=== PATIENT | male | born 1945 | race Caucasian/White ===

== ENCOUNTER 2016-07-08 11:08 | Day surgery (SDC) | payer MEDICARE ==
[~2016-07-08 11:08] MED LIST: Buffered Lidocaine 1% SYR 3ML* 3 ML/SYR SYRINGE INTRADERM ONE; Metoclopramide TAB* 10 MG PO ONE; Sodium Citrate/Citric Acid* 15 ML UDC PO ONE; celeCOXIB CAP* 100 MG ONE; celeCOXIB CAP* 200 MG PO ONE
[2016-07-08] MEDS ORDERED: ceFAZolin 2 GM PREMIX (*) 2 GM/50 ML BAG IVPB ONE (11:09)
[2016-07-08] MEDS ORDERED: Metoclopramide TAB* 10 MG ONE (11:09)
[2016-07-08] MEDS ORDERED: Sodium Citrate/Citric Acid* 15 ML UDC ONE (11:09)
[2016-07-08] MEDS ORDERED: Bupivacaine 0.25% EPI 200,000* 30 ML SDV ONE (14:47)
[2016-07-08] MEDS ORDERED: fentaNYL* 50 MCG/ML 2 ML VIAL (100 MCG VIAL) ONE (15:16)
[2016-07-08] MEDS ORDERED: Atracurium* 10 MG/ML 10 ML VIAL ONE (15:16)
[2016-07-08] MEDS ORDERED: fentaNYL* 50 MCG/ML 2 ML VIAL (100 MCG VIAL) IV PRN (15:54)
[2016-07-08] MEDS ORDERED: diPHENhydraMINE IV* 50 MG/ML 1 ml VIAL (BENADRYL) IV PRN (15:54)
[2016-07-08] MEDS ORDERED: Ketorolac INJ* 30 MG/ML 1 ML VIAL IV PRN (15:54)
[2016-07-08] MEDS ORDERED: Lidocaine 2% PF * 5 ML VIAL ONE (15:59)
[2016-07-08] MEDS ORDERED: Propofol* 10 MG/ML 20 ML BTL IV PUSH ONE ×2 (15:59→16:55)
[2016-07-08] MEDS ORDERED: Atropine 1MG/ML INJ* 1 ML VIAL ONE (16:36)
[2016-07-08] MEDS ORDERED: Edrophonium Chloride* 10 MG/ML 15 ML VIAL ONE (16:37)
[2016-07-08] MEDS ORDERED: HYDROcodone/ACETAMIN 5-325 MG* 1 TAB PO PRN (17:02)
--- NOTE | 2016-07-08 17:03 | SURGPN ---
Brief Operative Note - Surgery Procedures: Procedures OPERATIVE REPORT PRE-OP: Cholelithasis, abdominal pain POST-OP: Same PROCEDURE: Laparoscopic cholecystectomy SURGEON: MD León ANESTHESIA: General with Local ASST: DANIEL Buitrago IVF: 1 liter of crystalloid EBL: min SPECIMEN: gallbladder DRAIN: none WOUND CLASS: 2 COMPLICATIONS: none TO PACU
[2016-07-08] MEDS ORDERED: Ketorolac INJ* 30 MG/ML 1 ML VIAL ONE (18:10)
[2016-07-08 19:22] VITALS: BP 117/60
--- NOTE | 2016-07-09 09:37 | OP ---
DATE OF OPERATION: 07/08/16 [facility] DATE OF : 49 SURGEON: Gregg Traore MD. PRODUCTION CONTROL EXPEDITER: DANIEL Barker. ANESTHESIOLOGIST: Dr. Carlisle. ANESTHESIA: Local with general. PRE-OP DIAGNOSES: 1. Right-sided abdominal pain. 2. Cholelithiasis. POST-OP DIAGNOSIS: OPERATIVE PROCEDURE: Laparoscopic cholecystectomy. ESTIMATED BLOOD LOSS: Minimal. WOUND CLASSIFICATION: II. DRAINS: None. COMPLICATIONS: Gallbladder. SPECIMENS: Gallbladder. FINDINGS: The gallbladder was without acute or chronic inflammation, although did have quite a bit of fat surrounding the gallbladder. There was one gallstone measuring about 1 cm in the gallbladder itself. No other abnormality noted on brief laparoscopy of the right side of the abdomen. BRIEF HISTORY: Mr. Danie Huntley is a 71-year-old gentleman with a long history of abdominal discomfort mainly in the right side of his abdomen. He has undergone an appendectomy in the past. He has had gallstones for long that have been known for a prolonged period of time and now is having more intermittent, but severe right-sided abdominal pain, somewhat more in the right mid abdomen. He has undergone both upper and lower endoscopy and a HIDA scan in addition, it showed an ejection fraction of 33%. Due to severity and nature of his symptoms and the persistence, although there may be other etiology of his discomfort such as functional bowel syndrome, and after consultation with Gastroenterology and Dr. Goyal, decision is made to proceed with cholecystectomy with the hopes that his symptoms are secondary to the gallstones and he would benefit from a cholecystectomy. DESCRIPTION OF PROCEDURE: Written informed consent was obtained, the abdomen was marked with indelible ink and preoperative antibiotics were administered. The patient was taken to the operating room and placed in the supine position. Sequential compression devices and a warming blanket were applied. The abdomen was prepped and draped in the usual sterile fashion. Time-out verification was completed. Next, a small vertical incision was made several centimeters above the umbilicus at the midline. The peritoneal cavity was entered under direct vision. A 12-mm port was inserted and the abdomen was insufflated to 15 mmHg. Under direct vision, an 11-mm epigastric port was placed and two 5-mm ports were placed in the right side of the abdominal wall. Upon entering the abdomen, there was no obvious adhesive disease. No incisional or abdominal wall hernias were noted. The liver appeared to be normal. There was some fatty omental attachments to the gallbladder, which were taken down sharply to expose the gallbladder. This was without evidence of acute or chronic inflammation. He did have some fat that was adherent to the wall, which was taken down bluntly, but easily and we were able to grasp the gallbladder easily and elevate it up over the liver bed. The fat and peritoneum along the medial and lateral aspects of the gallbladder were then taken down using sharp and blunt dissection, and the cystic duct and artery were carefully identified and dissected as they entered the gallbladder. I took a considerable portion of the gallbladder off the liver bed space using the critical view technique to assure myself that all of these two structures entered the gallbladder. The cystic duct was of normal caliber and was triply clipped and divided. The cystic artery was also doubly clipped and divided. The gallbladder was then removed from the liver bed without difficulty and placed in an EndoCatch bag and brought out through the umbilical incision. The gallbladder bed was irrigated. Hemostasis was assured. Next, in light of the patient's mid abdominal discomfort using some bowel graspers, we were able to identify the right colon and cecum. There were some very superficial adhesions from the cecum to the right lateral abdominal wall from the previous surgery, and I was able to identify the staple line on the cecum which was all intact. The terminal ileum was of normal caliber and was free, and I followed this back using some bowel graspers several feet, and there was no change in caliber of the small bowel. No adhesive disease or abnormality noted. It was also noted that all the entire bowel that I could see with somewhat limited laparoscopy, was normal caliber without evidence of distention or obvious abnormality. With this in mind, all ports were removed under direct vision of the camera. The umbilical fascia was closed with interrupted 0 Polysorb suture. The skin at all 4 incisions was approximated with subcuticular 4-0 Polysorb suture. Steri-Strips and sterile dressings were applied. The patient tolerated the procedure well, was taken to the recovery room in stable condition. CC: Dr. Marc Patel; Dr. Jonel Goyal* [id number]/[facility] #: [id number] [facility]
== END 2016-07-08 19:23 | disposition home or self-care (01) ==
LOC: OR 11:08
PROVIDERS: ATTEND Surgery
DX: K80.10 Calculus of gallbladder with chronic cholecystitis without obstruction (principal); I48.91 Unspecified atrial fibrillation; Z79.01 Long term (current) use of anticoagulants; E66.9 Obesity, unspecified; E11.8 Type 2 diabetes mellitus with unspecified complications; Z79.84 Long term (current) use of oral hypoglycemic drugs
CPT/HCPCS: 36415; 85610; 88304; A9270-GY; J0461; J0690; J1885; J2704; J3010

== ENCOUNTER 2016-12-15 21:41 | Observation (INO) | payer MEDICARE ==
[2016-12-15] MEDS ORDERED: Aspirin Low Dose CHEW TAB* 81 MG PO ONE (22:32)
[2016-12-15 23:23] LABS: Hematocrit 38 % (42-52); Hemoglobin 12.7 g/dl (14.0-18.0); Mean Corpuscular HGB Conc 33 g/dl (31-36); Mean Corpuscular Hemoglobin 26 pg (27-31); Mean Corpuscular Volume 79 fL (80-94); Mean Platelet Volume 9 um3 (7.4-10.4); Red Blood Count 4.84 10^6/ul (4.0-5.4); Red Cell Distribution Width 16 % (10.5-15); White Blood Count 7.3 10^3/ul (3.5-10.8)
[2016-12-15 23:41] LABS: BUN/Creatinine Ratio 16.3 (8-20); Calcium 9.3 mg/dL (8.6-10.3); EGFR African American 123.3 (>60); EGFR Non-African American 95.8 (>60); Globulin 3.2 g/dL (2-4); Potassium 3.8 mmol/L (3.5-5.0); Total Bilirubin 0.5 mg/dL (0.2-1.0); Total Protein 7.2 g/dL (6.4-8.9)
[2016-12-16 01:38] LABS: C Reactive Protein 4.27 mg/L (< 5.00)
[2016-12-16] MEDS ORDERED: HYDROcodone/ACETAMIN 5-325 MG* 1 TAB PO PRN (01:38)
[2016-12-16] MEDS ORDERED: Acetaminophen TAB* 325 MG PO PRN (01:38)
[2016-12-16] MEDS ORDERED: diPHENhydraMINE PO* 25 MG PO PRN (01:40)
[2016-12-16] MEDS ORDERED: Dextrose 50% Syringe 50 ML* 25 GM/50 ML SYRINGE IV PUSH PRN (01:50)
[2016-12-16] MEDS ORDERED: Warfarin TAB(*) 5 MG PO SCH (02:00)
[2016-12-16 02:09] LABS: Erythrocyte Sed Rate 22 mm/Hr (0-40)
--- NOTE | 2016-12-16 03:27 | HP ---
CC: Dr. Ahmadi; Dr. Patel * HISTORY AND PHYSICAL: DATE OF ADMISSION: 12/16/16 PRIMARY CARE PROVIDER: Dr. Patel. FORTUNE COOKIE MAKER: Dr. Ahmadi. CHIEF COMPLAINT: Chest pain. HISTORY OF PRESENT ILLNESS: The patient states that beginning on the afternoon of 12/14/16, he began to have pain that would come and go. He describes the pain as a dull ache in the left lower chest. He states that beginning in the afternoon of 12/15/16, the pain became persistent. He still describes this as a dull ache. He rates it as 4-5/10. He has no associated shortness of breath or diaphoresis. He does state that he feels mildly nauseous. He notes that his pain worsens when he takes a deep breath. He denies any recent travel. Patient also notes that the pain is much worse upon sitting up or any movement. The patient denies any recent strenuous activity. His does add that this past he was very tired on the way home from shopping. He was reportedly falling asleep at the wheel. When he got home, he took a long nap, which is very out of character for him. PAST MEDICAL HISTORY: 1. A-fib, status post ablation. 2. Cervical spinal stenosis. 3. Ankylosing spondylitis. 4. CITLALY, on CPAP. 5. Type 2 diabetes. 6. GERD. 7. BPH. PAST SURGICAL HISTORY: 1. Cholecystectomy. 2. TURP. 3. Right rotator cuff repair. 4. Appendectomy. 5. Left total knee replacement. 6. Right knee arthroscopy. MEDICATIONS: 1. Metformin 500 mg p.o. b.i.d. 2. Benadryl 25 mg p.o. q.h.s. p.r.n. insomnia. 3. Coumadin 5 mg p.o. each Friday and 7.5 mg p.o. Friday, Friday, Friday, , Friday, and Friday. 4. Requip 0.5 mg p.o. q.h.s. 5. Potassium chloride 20 mEq p.o. daily. 6. Protonix 40 mg p.o. b.i.d. 7. Lunesta 3 mg p.o. q.h.s. 8. Dofetilide 500 mcg p.o. b.i.d. 9. Diltiazem ER 120 mg p.o. daily. ALLERGIES: MORPHINE. FAMILY HISTORY: Mother at age of 68. She had a CVA. She also had small bowel obstruction. Dad at age of 72. He had COPD. SOCIAL HISTORY: The patient is currently a nonsmoker, though he did smoke a pipe several years ago. He does not drink alcohol. 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 He is . He has 4 children. His is his healthcare proxy. REVIEW OF SYSTEMS: The patient denies any fevers or chills. He states his appetite has been poor over the last several days. He admits to the chest pain as noted above. He also admits to chronic left lower extremity swelling. He noted slight cough on the day prior to admission. No significant shortness of breath. Mild nausea. The patient states he had diarrhea earlier this past week. No dysuria. No focal weakness or sensory loss. No sudden change in the vision. No dysphagia. No joint pains or muscles pain out of the ordinary. No rashes. No anxiety or depression. PHYSICAL EXAMINATION GENERAL: The patient is a well-developed middle-aged male, lying in the stretcher, in no acute distress. VITAL SIGNS: Blood pressure 132/73, pulse 58, respirations 16, temp 98.1, O2 sat 98% on room air. HEENT: Pupils are equal, they are round, they react to light. Extraocular muscles are intact. Oropharynx is clear. Oral mucosa is moist. NECK: There is no submandibular, cervical or supraclavicular adenopathy. Thyroid is not enlarged. No thyroid nodules are noted. PULMONARY: Lungs are clear to auscultation bilaterally. CARDIAC: Normal S1 and S2. Regular rate and rhythm. I do not appreciate any murmurs. There is non-pitting edema of the left lower extremity. The patient does have point tenderness to palpation at the lower left sternum. ABDOMEN: Bowel sounds present. Abdomen is soft, nontender, nondistended. MUSCULOSKELETAL: There is no cyanosis or clubbing of the digits. There is full active range of motion of all 4 extremities. NEURO: Cranial nerves II through XII are grossly intact. Sensation is intact to light touch throughout. Strength is 5/5 and symmetric in both the upper and lower extremities bilaterally. PSYCH: The patient is alert. He is oriented x3. Affect appears appropriate. SKIN: Warm and dry. There are no rashes. DIAGNOSTIC STUDIES/LAB DATA: Sodium 133, potassium 3.8, chloride 102, CO2 27, BUN 13, creatinine 0.8, glucose 120, lactic acid 1.2, calcium 9.3, bilirubin 0.5 , AST 16, AST 15, alk phos 58. Troponin 0. CRP 4.27. BNP 92. Albumin is 4.0. INR 1.97. D-dimer less than 200. WBC 7.3, hemoglobin 12.7, hematocrit 38 , platelets 174,000. EKG reveals normal sinus rhythm. Chest x-ray, no acute findings per my interpretation. ASSESSMENT AND PLAN: Mr. Huntley is a 71-year-old male with known history of type 2 diabetes, obstructive sleep apnea, and atrial fibrillation, status post ablation, who presents to the emergency room with complaints of chest pain that has been present for over 24 hours. 1. Chest pain. My suspicion for the patient's chest pain is that this is likely musculoskeletal in nature. The patient's D-dimer is negative, essentially ruling out pulmonary embolism. The patient's CRP is not significantly elevated, therefore I do not suspect pericarditis, especially as his pain worsens with sitting forward and his EKG does not show any diffuse ST elevations. At this point, the patient will be ruled out for an acute coronary syndrome and undergo chemical nuclear stress test later today. If this is negative, the patient can go home. 2. Type 2 diabetes. The patient's metformin is going to be held. He will be placed on a lispro sliding scale while n.p.o. 3. Atrial fibrillation, status post ablation. The patient will continue on his home medication regimen of Coumadin, Tikosyn, and diltiazem. 4. DVT prophylaxis. According to the Adult Thrombosis Prophylaxis Risk Factor Assessment Guide, the patient has a total risk factor score of 3, making him high risk. He will be placed on heparin 5000 units subcutaneous q.8 hours. 5. Code status is DNR and again the patient indicates his is his healthcare proxy. TIME SPENT: Fifty five minutes was spent admitting this patient. [id number]/[facility] #: [id number] [facility]
[2016-12-16] MEDS: Insulin LISPRO* 1 UNITS UNIT SUBCUT SCH ×2 (05:53→14:06)
[2016-12-16] MEDS ORDERED: Heparin VIAL(*) 5000 UNITS/ML VIAL (FIVE THOUSAND) SUBCUT SCH (06:00)
--- NOTE | 2016-12-16 06:12 | ED ---
Richie Quinonez Rebecca, scribed for Estevan Harrison MD on 12/15/16 at 2217 . HPI Chest Pain - HPI Summary HPI Summary: Pt is a 71 y/o M who presents to ED c/o CP. Pain began yesterday afternoon and was initially intermittent but has been constant since approximately 1330 today. Denies any exertion or heavy lifting prior to onset of sx. Pain is in the left lateral region without any radiation and is characterized as a moderate ache, ranked 5/10. Sx aggravated by sitting up and deep breaths, alleviated by nothing. Denies fever, chills, SOB, edema and calf pain. Is on Warfarin. Recently traveled 2 hours via car. PSHx cardiac ablation in 2013 - last stress test was prior to ablation. No PMHx PR. - History of Current Complaint Chief Complaint: EDChestPainROMI Time Seen by Provider: 12/15/16 22:15 Hx Obtained From: Patient Onset/Duration: Started Days Ago - Started yesterday, Still Present Timing: Constant - Constant since approximately 1330, Intermittent - Intermittent yesterday Current Severity: Moderate Pain Intensity: 5 Pain Scale Used: 0-10 Numeric Chest Pain Location: Left Anterior Chest Pain Radiates: No Character: Dull/Aching Aggravating Factor(s): Movement - Sitting up, Deep Breaths Alleviating Factor(s): Nothing Associated Signs and Symptoms: Positive: Negative. Negative: Shortness of Breath, Fever, Chills, Edema - Additional Pertinent History Primary Care Physician: [id number] - Allergy/Home Medications Allergies/Adverse Reactions: Allergies Allergy/AdvReac Type Severity Reaction Status Date / Time Morphine Allergy Severe Nausea Verified 07/08/16 11:25 Home Medications: Home Medications Warfarin TAB(*) [Coumadin TAB(*)] 5 mg PO TU 12/16/16 [History Confirmed ] PMH/Surg Hx/FS Hx/Imm Hx Endocrine/Hematology History: Reports: Hx Anticoagulant Therapy - takes coumadin at home, Hx Diabetes - type 2 Denies: Hx Sickle Cell Disease Cardiovascular History: Reports: Hx Angina, Hx Valvular Heart Disease, Other Cardiovascular Problems/Disorders - hx pericarditis,a-fib had an cardiac ablation 03/2014 Denies: Hx Congestive Heart Failure, Hx Hypertension, Hx Myocardial Infarction, Hx Pacemaker/ICD Respiratory History: Reports: Hx Sleep Apnea, Other Respiratory Problems/ Disorders - SOB upon exertion this admission GI History: Reports: Hx Gastroesophageal Reflux Disease, Hx Obstructive Bowel - this admission, Other GI Disorders - gall bladder issues History: Reports: Hx Benign Prostatic Hyperplasia, Other Problems/ Disorders - Had TURP procedure 2011 Denies: Hx Dialysis, Hx Renal Disease Musculoskeletal History: Reports: Hx Arthritis - ankylosing spondylitis, Other Musculoskeletal History - R shoulder rotator cuff, L knee total replacement, R knee arthroscopy Sensory History: Reports: Hx Contacts or Glasses, Hx Vision Problem, Hx Hearing Aid - states hears w/o it will leave home inst given Opthamlomology History: Reports: Hx Contacts or Glasses, Hx Vision Problem Neurological History: Reports: Other Neuro Impairments/Disorders - Restless leg Psychiatric History: Denies: Hx Panic Disorder - Surgical History Surgery Procedure, Year, and Place: 2006 RT shoulder [facility] [place]. L TOTAL KNEE [facility] [place] 2009. APPY [facility] [place] 2010. TURP [facility] [place] 2012. RT KNEE ARTHROSCOPY AT [facility] [place] 2012. 2014 HEART ABLATION AT [facility] IN [place] Hx Anesthesia Reactions: No Infectious Disease History: No Infectious Disease History: Denies: Traveled Outside the [place] in Last 30 Days - Family History Known Family History: Positive: Diabetes - Social History Alcohol Use: None Substance Use Type: Reports: None Smoking Status (MU): Never Smoked Tobacco Type: Pipe Have You Smoked in the Last Year: No Review of Systems Negative: Fever, Chills Positive: Chest Pain - left anterior CP Negative: Shortness Of Breath Positive: Other - Negative: calf pain. Negative: Edema All Other Systems Reviewed And Are Negative: Yes Physical Exam - Summary Physical Exam Summary: The patient is well-nourished in no acute distress and in no acute pain. The skin is warm and dry and skin color reflects adequate perfusion. HEENT: The head is normocephalic and atraumatic. The pupils are equal and reactive. The conjunctivae are clear and without drainage. Nares are patent and without drainage. Mouth reveals moist mucous membranes and the throat is without erythema and exudate. The external ears are intact. The ear canals are patent and without drainage. The tympanic membranes are intact. Neck is supple with full range of motion and non-tender. There are no carotid bruits. There is no neck vein distension. Respiratory: Reproducible chest pain. Lungs are clear to auscultation and breath sounds are symmetrical and equal. Cardiovascular: Hear is regular rate and rhythm. There is no murmur or rub auscultated. Pulses are symmetrical and equal. Abdomen: The abdomen is obese, soft and non-tender. There are normal bowel sounds heard in all four quadrants and there is no organomegaly palpated. Musculoskeletal: There is no back pain noted. Extremities are non-tender with full range of motion. There is good capillary refill. There is no calf tenderness elicited with mild pitting edema in the LE. Neurological: Patient is alert and oriented to person, place and time. The patient has symmetrical motor strength in all four extremities. Psychiatric: The patient has an appropriate affect and does not exhibit any anxiety or depression. Triage Information Reviewed: Yes Vital Signs On Initial Exam: Initial Vitals Temp Pulse Resp BP Pulse Ox 98.1 F 66 18 130/76 96 12/15/16 21:45 12/15/16 21:45 12/15/16 21:45 12/15/16 21:45 12/15/16 21:45 Vital Signs Reviewed: Yes - Nichelle Coma Scale Coma Scale Total: 15 Diagnostics - Vital Signs Vital Signs Temp Pulse Resp BP Pulse Ox 12/15/16 22:01 22 12/15/16 21:53 98.1 F 66 18 130/76 96 12/15/16 21:45 98.1 F 66 18 130/76 96 - Laboratory Lab Results: Lab Results 12/15/16 12/15/16 12/15/16 Range/Units 23:11 23:11 23:11 WBC 7.3 (3.5-10.8) 10^3/ul RBC 4.84 (4.0-5.4) 10^6/ul Hgb 12.7 L (14.0-18.0) g/dl Hct 38 L (42-52) % MCV 79 L (80-94) fL MCH 26 L (27-31) pg MCHC 33 (31-36) g/dl RDW 16 H (10.5-15) % Plt Count 174 (150-450) 10^3/ul MPV 9 (7.4-10.4) um3 Neut % (Auto) 66.8 (38-83) % Lymph % (Auto) 21.6 L (25-47) % [place] % (Auto) 9.3 H (1-9) % Eos % (Auto) 1.8 (0-6) % Baso % (Auto) 0.5 (0-2) % Absolute Neuts (auto) 4.9 (1.5-7.7) 10^3/ul Absolute Lymphs (auto) 1.6 (1.0-4.8) 10^3/ul Absolute Monos (auto) 0.7 (0-0.8) 10^3/ul Absolute Eos (auto) 0.1 (0-0.6) 10^3/ul Absolute Basos (auto) 0 (0-0.2) 10^3/ul Absolute Nucleated RBC 0 10^3/ul Nucleated RBC % 0 ESR 22 (0-40) mm/Hr INR (Anticoag Therapy) 1.97 H (0.89-1.11) D-Dimer, Quantitative < 200 (Less Than 230) ng/mL Sodium 133 (133-145) mmol/L Potassium 3.8 (3.5-5.0) mmol/L Chloride 102 (101-111) mmol/L Carbon Dioxide 27 (22-32) mmol/L Anion Gap 4 (2-11) mmol/L BUN 13 (6-24) mg/dL Creatinine 0.80 (0.67-1.17) mg/dL Est GFR ( Amer) 123.3 (>60) Est GFR (Non-Af Amer) 95.8 (>60) BUN/Creatinine Ratio 16.3 (8-20) Glucose 120 H (70-100) mg/dL Lactic Acid (0.5-2.0) mmol/L Calcium 9.3 (8.6-10.3) mg/dL Total Bilirubin 0.50 (0.2-1.0) mg/dL AST 16 (13-39) U/L ALT 15 (7-52) U/L Alkaline Phosphatase 58 (34-104) U/L Troponin I 0.00 (<0.04) ng/mL C-Reactive Protein 4.27 (< 5.00) mg/L B-Natriuretic Peptide ( - 100) pg/mL Total Protein 7.2 (6.4-8.9) g/dL Albumin 4.0 (3.2-5.2) g/dL Globulin 3.2 (2-4) g/dL Albumin/Globulin Ratio 1.3 (1-3) 12/15/16 12/15/16 Range/Units 23:11 23:11 WBC (3.5-10.8) 10^3/ul RBC (4.0-5.4) 10^6/ul Hgb (14.0-18.0) g/dl Hct (42-52) % MCV (80-94) fL MCH (27-31) pg MCHC (31-36) g/dl RDW (10.5-15) % Plt Count (150-450) 10^3/ul MPV (7.4-10.4) um3 Neut % (Auto) (38-83) % Lymph % (Auto) (25-47) % [place] % (Auto) (1-9) % Eos % (Auto) (0-6) % Baso % (Auto) (0-2) % Absolute Neuts (auto) (1.5-7.7) 10^3/ul Absolute Lymphs (auto) (1.0-4.8) 10^3/ul Absolute Monos (auto) (0-0.8) 10^3/ul Absolute Eos (auto) (0-0.6) 10^3/ul Absolute Basos (auto) (0-0.2) 10^3/ul Absolute Nucleated RBC 10^3/ul Nucleated RBC % ESR (0-40) mm/Hr INR (Anticoag Therapy) (0.89-1.11) D-Dimer, Quantitative (Less Than 230) ng/mL Sodium (133-145) mmol/L Potassium (3.5-5.0) mmol/L Chloride (101-111) mmol/L Carbon Dioxide (22-32) mmol/L Anion Gap (2-11) mmol/L BUN (6-24) mg/dL Creatinine (0.67-1.17) mg/dL Est GFR ( Amer) (>60) Est GFR (Non-Af Amer) (>60) BUN/Creatinine Ratio (8-20) Glucose (70-100) mg/dL Lactic Acid 1.2 (0.5-2.0) mmol/L Calcium (8.6-10.3) mg/dL Total Bilirubin (0.2-1.0) mg/dL AST (13-39) U/L ALT (7-52) U/L Alkaline Phosphatase (34-104) U/L Troponin I (<0.04) ng/mL C-Reactive Protein (< 5.00) mg/L B-Natriuretic Peptide 92 ( - 100) pg/mL Total Protein (6.4-8.9) g/dL Albumin (3.2-5.2) g/dL Globulin (2-4) g/dL Albumin/Globulin Ratio (1-3) Result Diagrams: 12/15/16 23:11 12/15/16 23:11 Lab Statement: Any lab studies that have been ordered have been reviewed, and results considered in the medical decision making process. - Radiology CXR Radiology Interpretation Completed By: ED Physician - Cardiomegaly. No infiltrate, no PNA - EKG 2206 Cardiac Rate: NL - 65 bpm EKG Rhythm: Sinus Rhythm EKG Interpretation: No ST elevation, no ischemia, no STEMI Re-Evaluation - Re-Evaluation First Eval Re-Evaluation Time: 00:59 Change: Unchanged Comment: Still experiencing chest discomfort. Chest Pain Course/Dx - Course Assessment/Plan: Pt is a 71 y/o M who presents to ED c/o CP. Pain began yesterday afternoon and was initially intermittent but has been constant since approximately 1330 today. Denies any exertion or heavy lifting prior to onset of sx. Pain is in the left lateral region without any radiation and is characterized as a moderate ache, ranked 5/10. Sx aggravated by sitting up and deep breaths, alleviated by nothing. Denies fever, chills, SOB, edema and calf pain. Is on Warfarin. Recently traveled 2 hours via car. PSHx cardiac ablation in 2013 - last stress test was prior to ablation. No PMHx PR. CXR reveals cardiomegaly, no infiltrate, no PNA as read by ED physician. EKG reveal sinus rhythm with no ST elevations. In the ED course, pt received ASA. Discussed care of pt with Dr. Roxanne Li who accepts pt for admission. He will be admitted with Dx of chest pain. He understands and agrees. - Chest Pain Differential Diagnosis/HQI/PQRI: Acute PR, Lower Respiratory Infection, Other: - Pericarditis - Diagnoses Provider Diagnoses: Chest pain - Provider Notifications Discussed Care Of Patient With: Roxanne Li Time Discussed With Above Provider: 01:02 Instructed by Provider To: Other - Accepts pt for admission. Discharge - Discharge Plan Condition: Good Disposition: ADMITTED TO [facility] The documentation as recorded by the Richie kaplan Rebecca accurately reflects the service I personally performed and the decisions made by me, Estevan Harrison MD.
--- NOTE | 2016-12-16 07:53 | RAD ---
HISTORY: Chest pain, shortness of breath, pneumonia, CHF COMPARISONS: The 2014 VIEWS: 4: Frontal dual-energy and lateral views of the chest. FINDINGS: CARDIOMEDIASTINAL SILHOUETTE: The aorta is tortuous. The cardiomediastinal silhouette is otherwise unremarkable. WYATT: The wyatt are normal. PLEURA: The costophrenic angles are sharp. No pleural abnormalities are noted. LUNG PARENCHYMA: There is minimal linear pleural parenchymal scarring of the left lung base, stable. ABDOMEN: The upper abdomen is clear. There is no subphrenic gas. BONES AND SOFT TISSUES: No bone or soft tissue abnormalities are noted. OTHER: None. IMPRESSION: NO ACTIVE CARDIOPULMONARY DISEASE.
[2016-12-16] MEDS ORDERED: Potassium Chlor TAB* 20 MEQ TAB.ER PO SCH (08:30)
--- NOTE | 2016-12-16 08:44 | PN ---
Subjective Date of Service: 12/16/16 Interval History: Mr. Huntley is a 71 yo male with a PMH of afib s/p ablation, DM2, GERD, CITLALY , BPH, and cervical spinal stenosis who presented to the ED on 12/15 with concern for chest pain. The pain initially began on 12/14 intermittently and has become more persistent. He can locate the pain to his left chest and states it worsens with deep inspiration. Patient seen and examined at bedside. He is sitting up in bed and still points to the same area as the area of discomfort. It has not changed or worsened. Denies any diaphoresis, SOB, radiating pain. Family History: Unchanged from Admission Social History: Unchanged from Admission Past Medical History: Unchanged from Admission Objective Active Medications: Acetaminophen (Tylenol Tab*) 650 mg PO Q4H PRN PRN Reason: PAIN Hydrocodone Bitart/Acetaminophen ([place] 5-325 Tab*) 1 tab PO Q4H PRN PRN Reason: PAIN Dextrose (D50w Syringe 50 Ml*) 12.5 gm IV PUSH .FOR FS < 60 - SS PRN PRN Reason: FS < 60 Diltiazem HCl (Cardizem Cd Cap*) 120 mg PO DAILY YOVANNY Diphenhydramine HCl (Benadryl Po*) 25 mg PO BEDTIME PRN PRN Reason: Allergy Symptoms Dofetilide (Tikosyn Cap*) 500 mcg PO BID [facility] Insulin Human Lispro (Humalog*) 0 units SUBCUT Q6HR YOVANNY PRN Reason: Protocol Last Admin: 12/16/16 05:53 Dose: 2 unit Pantoprazole Sodium (Protonix Tab (Nf)) 40 mg PO BID [facility] Pharmacy Profile Note (Coumadin Daily Reminder*) 1 note FOLLOW UP 1700 [facility] Potassium Chloride (Klor Con Er Tab*) 20 meq PO DAILY WITH MEAL [facility] Ropinirole HCl (Requip Tab*) 0.5 mg PO BEDTIME [facility] Warfarin Sodium (Coumadin Tab(*)) 5 mg PO Tu@1700 [facility] PRN Reason: Protocol Warfarin Sodium (Coumadin Tab(*)) 7.5 mg PO SuMoWeThFrSa@1700 [facility] PRN Reason: Protocol Vital Signs 12/16/16 12/16/16 12/16/16 02:00 02:24 07:23 Temperature 97.6 F 97.8 F Pulse Rate 59 59 Respiratory 16 16 18 Rate Blood Pressure 130/78 123/76 (mmHg) O2 Sat by Pulse 100 100 Oximetry Oxygen Devices in Use Now: None Appearance: Male patient, sitting up in bed, in NAD Eyes: No Scleral Icterus Ears/Nose/Mouth/Throat: Clear Oropharnyx, Mucous Membranes Moist Neck: NL Appearance and Movements; NL JVP Respiratory: Symmetrical Chest Expansion and Respiratory Effort, Clear to Auscultation Cardiovascular: NL Sounds; No Murmurs; No JVD, RRR Abdominal: NL Sounds; No Tenderness; No Distention Extremities: No Edema Neurological: Alert and Oriented x 3, NL Muscle Strength and Tone Lines/Tubes/Other Access: Clean, Dry and Intact Peripheral IV Nutrition: Taking PO's Result Diagrams: 12/15/16 23:11 12/15/16 23:11 Additional Lab and Data: Lab Results 12/15/16 12/15/16 12/15/16 Range/Units 23:11 23:11 23:11 WBC 7.3 (3.5-10.8) 10^3/ul RBC 4.84 (4.0-5.4) 10^6/ul Hgb 12.7 L (14.0-18.0) g/dl Hct 38 L (42-52) % MCV 79 L (80-94) fL MCH 26 L (27-31) pg MCHC 33 (31-36) g/dl RDW 16 H (10.5-15) % Plt Count 174 (150-450) 10^3/ul MPV 9 (7.4-10.4) um3 Neut % (Auto) 66.8 (38-83) % Lymph % (Auto) 21.6 L (25-47) % [place] % (Auto) 9.3 H (1-9) % Eos % (Auto) 1.8 (0-6) % Baso % (Auto) 0.5 (0-2) % Absolute Neuts (auto) 4.9 (1.5-7.7) 10^3/ul Absolute Lymphs (auto) 1.6 (1.0-4.8) 10^3/ul Absolute Monos (auto) 0.7 (0-0.8) 10^3/ul Absolute Eos (auto) 0.1 (0-0.6) 10^3/ul Absolute Basos (auto) 0 (0-0.2) 10^3/ul Absolute Nucleated RBC 0 10^3/ul Nucleated RBC % 0 ESR 22 (0-40) mm/Hr INR (Anticoag Therapy) 1.97 H (0.89-1.11) D-Dimer, Quantitative < 200 (Less Than 230) ng/mL Sodium 133 (133-145) mmol/L Potassium 3.8 (3.5-5.0) mmol/L Chloride 102 (101-111) mmol/L Carbon Dioxide 27 (22-32) mmol/L Anion Gap 4 (2-11) mmol/L BUN 13 (6-24) mg/dL Creatinine 0.80 (0.67-1.17) mg/dL Est GFR ( Amer) 123.3 (>60) Est GFR (Non-Af Amer) 95.8 (>60) BUN/Creatinine Ratio 16.3 (8-20) Glucose 120 H (70-100) mg/dL Lactic Acid (0.5-2.0) mmol/L Calcium 9.3 (8.6-10.3) mg/dL Total Bilirubin 0.50 (0.2-1.0) mg/dL AST 16 (13-39) U/L ALT 15 (7-52) U/L Alkaline Phosphatase 58 (34-104) U/L Troponin I 0.00 (<0.04) ng/mL C-Reactive Protein 4.27 (< 5.00) mg/L B-Natriuretic Peptide ( - 100) pg/mL Total Protein 7.2 (6.4-8.9) g/dL Albumin 4.0 (3.2-5.2) g/dL Globulin 3.2 (2-4) g/dL Albumin/Globulin Ratio 1.3 (1-3) 12/15/16 12/15/16 Range/Units 23:11 23:11 WBC (3.5-10.8) 10^3/ul RBC (4.0-5.4) 10^6/ul Hgb (14.0-18.0) g/dl Hct (42-52) % MCV (80-94) fL MCH (27-31) pg MCHC (31-36) g/dl RDW (10.5-15) % Plt Count (150-450) 10^3/ul MPV (7.4-10.4) um3 Neut % (Auto) (38-83) % Lymph % (Auto) (25-47) % [place] % (Auto) (1-9) % Eos % (Auto) (0-6) % Baso % (Auto) (0-2) % Absolute Neuts (auto) (1.5-7.7) 10^3/ul Absolute Lymphs (auto) (1.0-4.8) 10^3/ul Absolute Monos (auto) (0-0.8) 10^3/ul Absolute Eos (auto) (0-0.6) 10^3/ul Absolute Basos (auto) (0-0.2) 10^3/ul Absolute Nucleated RBC 10^3/ul Nucleated RBC % ESR (0-40) mm/Hr INR (Anticoag Therapy) (0.89-1.11) D-Dimer, Quantitative (Less Than 230) ng/mL Sodium (133-145) mmol/L Potassium (3.5-5.0) mmol/L Chloride (101-111) mmol/L Carbon Dioxide (22-32) mmol/L Anion Gap (2-11) mmol/L BUN (6-24) mg/dL Creatinine (0.67-1.17) mg/dL Est GFR ( Amer) (>60) Est GFR (Non-Af Amer) (>60) BUN/Creatinine Ratio (8-20) Glucose (70-100) mg/dL Lactic Acid 1.2 (0.5-2.0) mmol/L Calcium (8.6-10.3) mg/dL Total Bilirubin (0.2-1.0) mg/dL AST (13-39) U/L ALT (7-52) U/L Alkaline Phosphatase (34-104) U/L Troponin I (<0.04) ng/mL C-Reactive Protein (< 5.00) mg/L B-Natriuretic Peptide 92 ( - 100) pg/mL Total Protein (6.4-8.9) g/dL Albumin (3.2-5.2) g/dL Globulin (2-4) g/dL Albumin/Globulin Ratio (1-3) Assess/Plan/Problems-Billing Assessment: Mr. Huntley is a 71 yo male with a PMH of afib s/p ablation, DM2, CITLALY, GERD , BPH, cervical spinal stenosis, and ankylosing spondylitis who presented to the ED on 12/15 with concern for chest pain. - Patient Problems (1) Chest pain Code(s): R07.9 - CHEST PAIN, UNSPECIFIED Comment: Troponins negative Etiology is more consistent with musculoskeletal causes Negative D-dimer, which rules out PE CRP not significantly elevated, low suspicion for pericarditis Plan for nuclear stress test (2) Diabetes mellitus type 2 in obese Code(s): E11.9 - TYPE 2 DIABETES MELLITUS WITHOUT COMPLICATIONS; E66.9 - OBESITY , UNSPECIFIED Comment: BG stable Metformin held Continue Lispro SSI (3) Atrial fibrillation Code(s): I48.91 - UNSPECIFIED ATRIAL FIBRILLATION Comment: s/p ablation Continue home Tikosyn, diltiazem, warfarin (4) DVT prophylaxis Comment: Warfarin Status and Disposition: OBV admit. D/c to home when medically stable.
[2016-12-16] MEDS ORDERED: Dofetilide CAP* 500 MCG PO SCH (09:00)
[2016-12-16] MEDS ORDERED: CMCS: Pantoprazole TAB (NF) 40 MG TAB PO SCH (09:00)
[2016-12-16] MEDS ORDERED: Diltiazem CD CAP* 120 MG PO SCH (09:00)
[2016-12-16] MEDS ORDERED: Regadenoson* 0.4 MG/5 ML SYRINGE ONE (09:30)
[2016-12-16] MEDS ORDERED: Aminophylline IV* 25 MG/ML 10 ML VIAL ONE (09:31)
[2016-12-16 12:48] VITALS: BP 129/75
--- NOTE | 2016-12-16 13:47 | RAD ---
HISTORY: Diabetes, atypical chest pain COMPARISONS: December 10, 2013 TECHNIQUE: A 1 day stress/rest myocardial perfusion study was performed, with pharmacologic stress. The stress portion was monitored by Dr. Wilson. Gated SPECT imaging was performed, with CT-based attenuation correction DOSE: Stress: Technetium 99m tetrofosmin, 25.65 millicuries, injected at 9:36 AM on December 16, 2016 Rest: Technetium 99m tetrofosmin, 10.6 millicuries, injected at 7:45 AM on December 16, 2016 Pharmacologic agent: Lexiscan FINDINGS: CARDIAC MONITORING: No EKG criteria of ischemia with stress EF: 68 % TID: 1 MOTION: Normal motion, with normal wall thickening. PERFUSION: A small reversible area of photopenia of the lateral wall resulting attenuation correction and is felt to be artifactual. Small reversible photopenic defects of the septum and lateral wall on the attenuation corrected images are felt to represent misregistration artifact. There are no definite fixed or reversible perfusion defects. OTHER: None IMPRESSION: NO DEFINITE FIXED OR REVERSIBLE PERFUSION DEFECTS ASSESSMENT: LOW RISK. Based on imaging criteria from ACC/AHA 2002. Guideline Update for the Management of Patient's with Chronic Stable Angina, table 23. Noninvasive Risk Stratification.
[2016-12-16] MEDS ORDERED: Warfarin TAB(*) 7.5 MG PO SCH (17:00)
[2016-12-16] MEDS ORDERED: Ropinirole TAB* 0.5 MG TAB PO SCH (21:00)
--- NOTE | 2016-12-17 03:25 | DS ---
CC: Dr. Marc Patel * DISCHARGE SUMMARY: DATE OF ADMISSION: 12/16/16 DATE OF DISCHARGE: 12/16/16 ATTENDING PHYSICIAN: Dr. Garry Perkins * (as dictated by Luciana Laura NP) PRIMARY CARE PROVIDER: Dr. Marc Patel. PRIMARY VETERINARY ASSISTANT TECHNICIAN: Dr. Ahmadi. PRIMARY DISCHARGE DIAGNOSIS: Chest pain. SECONDARY DISCHARGE DIAGNOSES: 1. Atrial fibrillation, status post ablation. 2. Cervical spinal stenosis. 3. Ankylosing spondylitis. 4. Obstructive sleep apnea, on CPAP. 5. Type 2 diabetes. 6. Gastroesophageal reflux disease. 7. Benign prostatic hypertrophy. MEDICATIONS AT DISCHARGE: 1. Warfarin 7.5 mg on Friday, Friday, Friday, , Friday, and Friday and 5 mg on Friday. 2. Pantoprazole 40 mg b.i.d. 3. Lunesta 3 mg at bedtime. 4. Dofetilide 500 mcg b.i.d. 5. Diltiazem 120 mg daily. 6. Ropinirole 0.5 mg at bedtime. 7. Potassium chloride 20 mEq daily. 8. Metformin 500 mg b.i.d. 9. Diphenhydramine 25 mg at bedtime p.r.n. HOSPITAL COURSE OF STAY: For full details, please refer to the H and P provided by Dr. Li. In summary, Mr. Huntley is a 71-year-old gentleman who presented to the ER on 12/15/16 with concern for a persistent dull ache in the left lower chest. The patient states that this pain started on the afternoon of 12/14/16 and was intermittent. However, over the course of that day and the following day, it became more persistent. He denied any associated shortness of breath or diaphoresis. It does not radiate anywhere. He notes the pain worsens with a deep breath and is reproducible with palpation. The patient denies any recent trauma to the chest or recent strenuous activity. The patient was monitored on telemetry overnight with no arrhythmias noted. He had repeat troponins, which were negative at 0.00. No other labs of note. He did undergo a stress test, which showed no EKG criteria of ischemia with stress , normal motion with normal wall thickening. No definite fixed or reversible perfusion defects. This is a low risk assessment. The patient's EKG shows normal sinus rhythm and no acute findings on the patient's chest x-ray. It was felt that the patient's chest pain is suspicious for musculoskeletal causes. His D-dimer is negative. He does not have an elevated CRP. Given all these findings, the patient was advised to continue with anti-inflammatories to help with the pain and to follow up with his PCP for further monitoring. No other acute concerns were noted. Prior to discharge, the patient noted that his pain was starting to improve and he feels safe going home. Mr. Huntley is discharged to home on 12/16/16 with a plan to follow up with his PCP within the next 7 days. DIET: Heart-health diet, consistent carbohydrate diet. ACTIVITY: As tolerated. CONDITION: Improved, stable. DISPOSITION: To home. TIME SPENT: Time spent on this discharge was approximately 35 minutes. Again, this is only a brief summary of the patient's hospital course of stay. For full details, please refer to the full medical record. If you need further questions or need further assistance, please feel free to contact me at [phone]. LUCIANA LAURA NP [id number]/[facility] #: [id number] CELESTE
[2016-12-17] MEDS ORDERED: Warfarin TAB(*) 5 MG PO SCH (17:00)
== END 2016-12-16 15:15 | disposition home or self-care (01) ==
LOC: ED 21:41 → MEDTELE 12-16 01:38
PROVIDERS: ADMIT Hospitalist; ATTEND Internal Medicine
DX: R07.89 Other chest pain (principal); I51.7 Cardiomegaly; R00.1 Bradycardia, unspecified; E11.9 Type 2 diabetes mellitus without complications; Z79.84 Long term (current) use of oral hypoglycemic drugs; Z79.01 Long term (current) use of anticoagulants; K21.9 Gastro-esophageal reflux disease without esophagitis; G47.33 Obstructive sleep apnea (adult) (pediatric); Z87.891 Personal history of nicotine dependence; I48.91 Unspecified atrial fibrillation
CPT/HCPCS: 36415; 71020; 78452; 80053; 83605; 83880; 84484; 85025; 85379; 85610; 85652; 86140; 93005; 93017; 99283; A9270-GY; A9502; G0378; J0280; J2785

== ENCOUNTER → 2017-06-09 07:22 | Day surgery (SDC) | payer MEDICARE ==
[~2017-06-09 07:22] MED LIST changes: +Buffered Lidocaine 0.9% SYRIN* 5 ML/SYR SYRINGE INTRADERM ONE; +Buffered Lidocaine 0.9% SYRIN* 5 ML/SYR SYRINGE ONE; -Buffered Lidocaine 1% SYR 3ML* 3 ML/SYR SYRINGE INTRADERM ONE; +Bupivacaine 0.25% SDV* 30 ML ONE; +Dexamethasone IV* 4 MG/ML 1 ML (4 MG) ONE; +DiMENhydriNATE IV* 50 MG/ML VIAL ONE; +Famotidine IV* 10 MG/ML 2 ML (20 mg) IV ONE; +Famotidine IV* 10 MG/ML 2 ML (20 mg) ONE; +KETAMINE HCL* 50 MG/ML 10 ML VIAL ONE; +Ketorolac INJ* 30 MG/ML 1 ML VIAL ONE; +Lidocaine 1% INJ* 10 MG/ML 30 ML SDV ONE; +Lidocaine 2% PF * 5 ML VIAL ONE; -Metoclopramide TAB* 10 MG PO ONE; +Midazolam* 1 MG/ML 10 ML VIAL (10 MG) ONE; +Naloxone* 0.4 MG/ML 1 ML VIAL IV PRN; +Ondansetron INJ* 2 MG/ML VIAL ONE; +Propofol* 10 MG/ML 20 ML BTL IV PUSH ONE; -Sodium Citrate/Citric Acid* 15 ML UDC PO ONE; +ceFAZolin 2 GM PREMIX (*) 2 GM/50 ML BAG IVPB ONE; -celeCOXIB CAP* 100 MG ONE; -celeCOXIB CAP* 200 MG PO ONE; +fentaNYL* 50 MCG/ML 2 ML VIAL (100 MCG VIAL) IV PRN; +fentaNYL* 50 MCG/ML 2 ML VIAL (100 MCG VIAL) ONE; +oxyCODONE/Acetamin 5/325 MG* TAB ONE; +oxyCODONE/Acetamin 5/325 MG* TAB PO PRN
[2017-06-09 08:40] LABS: INR 1.01 (0.77-1.02)
[2017-06-09 12:42] VITALS: BP 125/80
--- NOTE | 2017-06-10 16:03 | OP ---
DATE OF OPERATION: 06/09/17 - [facility] DATE OF : 49 SURGEON: Gregg Traore MD HSE COORDINATOR: DANIEL Dupont ANESTHESIOLOGIST: Dr. Edmonds. ANESTHESIA: Local with monitored anesthesia care, converted to general anesthesia. PRE-OP DIAGNOSIS: Ventral incisional hernia. POST-OP DIAGNOSIS: Ventral incisional hernia. OPERATIVE PROCEDURE: Open repair with mesh of a ventral incisional hernia, using a 6.[address] patch. ESTIMATED BLOOD LOSS: Minimal. SPECIMENS: None. COMPLICATIONS: None. DRAINS: None. WOUND CLASSIFICATION: 1. DESCRIPTION OF PROCEDURE: Written informed consent was obtained, the abdomen was marked with indelible ink and preoperative antibiotics were administered. The patient was taken to the operating room and placed in the supine position. Sequential compression devices and a warming blanket were applied. The abdomen was prepped and draped in the usual sterile fashion. Time-out verification was completed. The incisional hernia in question was at a small vertical incision from a previous laparoscopic cholecystectomy, 3 to 4 cm superior to the umbilicus. A 0.25% Marcaine mixed with 1% lidocaine was infiltrated in the area and a vertical incision was made through the previous scar and it was carried down through the subcutaneous tissue with an extensive amount of scar. We noted a hernia sac, which we dissected down to the fascial level. I did enter the sac and there was omentum up into this and I ended up excising the sac and entered the peritoneum and freed up the underside of the fascia. The omentum was reduced and was not resected. The fascial defect was about 3-cm in diameter and I felt that the fascia was substantially thinned surrounding the hernia and once the under-lying fascia had been freed, the decision was to place a 6.4-cm round Bard Ventrio ST hernia patch, which was placed under the abdominal wall and sutured into position using the straps that were attached to the mesh with horizontal 0 Polysorb sutures at 4 points around the circumference of the mesh. The mesh sat up to the abdominal wall nicely without wrinkling and covered the defect nicely. It was intra-peritoneal. Hemostasis was assured. The midline miami fascia was closed with interrupted # 1 Vicryl suture in a transverse orientation. Additional lidocaine and Marcaine was infiltrated. The wound was then closed in layers of 3-0 and 4-0 Polysorb suture. Steri-Strips and sterile dressings were applied. The patient tolerated the procedure well, was taken to the recovery room in stable condition. [id number]/[facility] #: [id number] CELESTE
== END | disposition home or self-care (01) ==
LOC: OR 07:22
PROVIDERS: ATTEND Surgery
PROC: 0WUF0JZ Supplement Abdominal Wall with Synthetic Substitute, Open Approach (ICD-10-PCS; principal; 2017-06-09 09:00)
DX: K43.2 Incisional hernia without obstruction or gangrene (principal); E11.9 Type 2 diabetes mellitus without complications; Z79.84 Long term (current) use of oral hypoglycemic drugs; I48.91 Unspecified atrial fibrillation; Z79.01 Long term (current) use of anticoagulants; G47.33 Obstructive sleep apnea (adult) (pediatric)
CPT/HCPCS: 36415; 85610; A9270-GY; C1781; J0690; J1100; J1240; J1885; J2250; J2405; J2704; J3010

== ENCOUNTER 2017-07-05 15:58 | Emergency (ER) | payer MEDICARE ==
--- OUTSIDE RECORDS SUMMARY | 2017-07-05 16:54 | XMS REPORT ---
:1945 External Reference #:[id number] Author Organization [facility] Address [address] [address] Phone [phone] Care Team Providers Name Role Phone Marc Patel MD Primary Care Physician Unavailable Payers Type Date Identification Payment Subscriber Numbers Provider Health Maintenance Effective: Policy Number: Medicare Blue Milagros Jewell Yuko Anderson (O) 04/28/2015 [id number] ankit MCKAY Group Number: [id number] [address] [address] PayID: [id number] SUSAN Schultz [id number] Problems Date Description Provider Status Onset: 10/12/2013 Electrocardiogram abnormal Rubio Kaufman M.D. Onset: 10/12/2013 Atrial fibrillation Rubio Kaufman M.D. Onset: 10/12/2013 Sleep disorder Rubio Kaufman M.D. Onset: 10/12/2013 Malaise and fatigue Rubio Kaufman M.D. Onset: 08/22/2014 Localized, primary osteoarthritis Mikey Salazar M.D. Active of the shoulder region Onset: 08/22/2014 Shoulder joint pain Mikey Salazar M.D. Active Onset: 08/22/2014 Disorder of bursa of shoulder Mikey Salazar M.D. Active region Onset: 08/22/2014 Disorder of shoulder Mikey Salazar M.D. Active Onset: 08/22/2014 Strain of rotator cuff capsule Mikey Salazar M.D. Active Onset: 08/22/2014 Neck pain Mikey Salazar M.D. Active Onset: 08/22/2014 Neck sprain Mikey Salazar M.D. Active Onset: 08/22/2014 Cervical disc disorder Mikey Salazar M.D. Active Onset: 09/12/2014 Spinal stenosis in cervical region Mikey Salazar M.D. 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 Cardizem CD 11/28/ Active Caps ER 120mg 90cap 1 by mouth I48.0 Qutaybeh 2014 24HR s once a day Ramone Ahmadi M.D. Pantoprazole / Active Tablets DR 40mg 90tab 1 po bid Unknown Sodium 0000 s Metformin HCL / Active Tablets 1000mg 60tab 1 by mouth Unknown 0000 s bid Multivitamins / Active Capsules 90cap 1 capsule Unknown 0000 s daniela;y Glucosamine 1500 / Active Capsules 1500Com 2 po qd Unknown Complex 0000 Tikosyn / Active Capsules 500mcg 180ca 1 by mouth Qutaybeh 0000 ps twice a S. day Bennie Ahmadi Amoxicillin / Active Capsules 500mg 4 tablets Unknown 0000 1 hour before dental work Eszopiclone / Active Tablets 3mg 1 tab each Unknown 0000 night at bedtime by mouth as needed insomnia. Cpap / Active Device Unknown 0000 Benadryl Allergy / Active Capsules 25mg take1 Unknown 0000 tablet as needed in evening Warfarin Sodium / Active Tablets 5mg 100ta 7.5 mg Charles, 0000 bs daily MD Bryan except Tues 5 mg or as directed Osteo Bi-Flex / Active Tablets 250-200mg 2 tablets Unknown Regular Strength 0000 by mouth daily Pramipexole / Active Tablets 0.125mg Darlow, Dihydrochloride 0000 Marc Pulido MD Klor-Con 12/26/ Hx Tablets ER 20Meq 30tab 1 by mouth Qutaybeh 2016 - s every day [facility]. [facility] Benn[facility] Potassium 04/11/ Hx Tablets ER 20Meq 90tab 1 by mouth Qutaybeh Chloride ER 2013 - s every day S. 08/21/ [facility] Kim Flecainide 02/07/ Hx Tablets 100mg 90tab 1 by mouth Qutaybeh Acetate 2013 - s twice a S. 05/01/ day [facility] Kim Flecainide 01/12/ Hx Tablets 50mg 90tab 1 bid Qutaybeh Acetate 2013 - s S. 02/07/ [facility] Bennie Flecainide 12/30/ Hx Tablets 50mg 60tab 1 by mouth Qutaybeh Acetate 2013 - s bid S. 01/12/ [facility] Bennie Atenolol 10/12/ Hx Tablets 25mg 30tab 1 by mouth Qutaybeh 2013 - s every day S. 11/28/ [facility] Bennie Coumadin 10/12/ Hx Tablets 5mg 30tab one by Qutaybeh 2013 - s mouth S. 08/21/ day [facility] 2015 or as , MThelmaD. directed. Ropinirole HCL / Hx Tablets 0.25mg 3 po qhs Unknown 0000 Aspirin / Hx Tablets 325mg 1 by mouth Unknown 0000 - every day 2013 Atenolol 00/ Hx Tablets 25mg 90tab 1/2 by Unknown 0000 - s mouth 10/12/ every day 2013 Calcium + D 00/ Hx Chewtabs 500-1000- every day Unknown 0000 - [place] [place] Prednisone 00/ Hx Tablets 10mg 30tab 1/2 bid, Unknown 0000 - s Thurs 05/01/ (02/10) 2014 decreased to 1/2 daily then 02/14 stop Iron / Hx Tablets 325(65Fe) 1 by mouth Unknown 0000 - mg every day( 05/17/ started 1 2014 week ago) Ampicillin / Hx Capsules 250mg 30cap 4 cap po Unknown 0000 - s 1/2 hour 08/21/ before 2015 dental visits Magnesium 00/ Hx Capsules 400mg 90cap 1 by mouth Qutaybeh 0000 - s every day S. 11/16/ Daiana Kim M.D. Ambien / Hx Tablets 5mg 5tabs 1 by mouth Unknown 0000 - tablet at 08/21/ bedtime as 2015 needed Calcium 1200 /00/ Hx Chewtabs 0473-3604 1 by mouth Unknown 0000 mg-Unit every day Klor-Con M20 / Hx Tablets ER 20Meq 90tab 1 by mouth Qutaybeh 0000 - s every day S. 07/01/ Daiana Govea M.D. Jantoven 00/ Hx Tablets 5mg 100ta 1 by mouth Qutaybeh 0000 - bs on odd S. 01/30/ , 1 Daiana 04/29M.D. wed, fri Move Free / Hx 1 po qd Unknown 0000 - 2016 Klor-Con 00/ Hx Packet 20Meq 30uni 1 by mouth Qutaybeh 0000 - ts every day S. 12/26/ Daiana Govea M.D. Medications Administered in Office Medication Date Status Form Strength Qnty SIG Indications Ordering Provider Technetium TC Administered Injection Brandon Phipps 99M 015 Bennie Bains Tetrofosmin, Per Unit Dose Up To 40 Millicuries Technetium TC Administered Injection Vera 99M 015 Frederick Staley M.D. Per Unit Dose Up To 40 Millicuries Depomedrol Administered Injection Mikey Villagomez 80MG 015 Bennie Salazar Depomedrol Administered Injection Hubert 80MG 014 Jessi Williamson Vital Signs Date Vital Result Comment 06/17/2017 Heart Rate 78 /min Respiratory Rate 20 /min Body Temperature 97.9 F 05/13/2017 Height 69 inches 5'9" Weight 231.00 lb Heart Rate 76 /min BP Systolic 134 mmHg BP Diastolic 80 mmHg Respiratory Rate 16 /min Body Temperature 98.1 F BMI (Body Mass Index) 34.1 kg/m2 08/29/2016 Height 69 inches 5'9" Weight 243.00 lb with shoes Heart Rate 82 /min BP Systolic Sitting 126 mmHg LA lrg cuff BP Diastolic Sitting 74 mmHg LA lrg cuff BMI (Body Mass Index) 35.9 kg/m2 Ejection Fraction 55% - 60% Tian 07/24/16 07/16/2016 Heart Rate 66 /min BP Systolic 122 mmHg BP Diastolic 76 mmHg Respiratory Rate 18 /min Body Temperature 97.8 F 07/03/2016 Heart Rate 66 /min BP Systolic 138 mmHg BP Diastolic 86 mmHg Respiratory Rate 18 /min Body Temperature 97.6 F 07/02/2016 Height 69 inches 5'9" Weight 245.75 lb with shoes Heart Rate 82 /min BP Systolic Sitting 136 mmHg LA reg cuff BP Diastolic Sitting 80 mmHg LA reg cuff BMI (Body Mass Index) 36.3 kg/m2 Ejection Fraction 60% - 65% echo 04/03/15 01/31/2016 Height 69 inches 5'9" Weight 230.00 lb Heart Rate 72 /min BP Systolic 136 mmHg BP Diastolic 84 mmHg Respiratory Rate 18 /min Body Temperature 99.1 F BMI (Body Mass Index) 34.0 kg/m2 11/21/2015 Height 69.5 inches 5'9.50" Weight 242.75 lb with shoes Heart Rate 78 /min BP Systolic Sitting 124 mmHg LA lrg cuff BP Diastolic Sitting 68 mmHg LA lrg cuff BMI (Body Mass Index) 35.3 kg/m2 Ejection Fraction 60%-65% echo 04/03/15 04/18/2015 Height 69.5 inches 5'9.50" Weight 254.00 lb w/shoes Heart Rate 70 /min BP Systolic Sitting 130 mmHg LA lg cuff BP Diastolic Sitting 78 mmHg LA lg cuff BMI (Body Mass Index) 37.0 kg/m2 Ejection Fraction 60-65 echo 04/03/15 03/06/2015 Height 69.5 inches 5'9.50" Weight 252.00 lb Heart Rate 72 /min BP Systolic Sitting 122 mmHg BP Diastolic Sitting 80 mmHg BMI (Body Mass Index) 36.7 kg/m2 Ejection Fraction 59% Nem rest 12/14/2014 Height 69.5 inches 5'9.50" Weight 257.25 lb Heart Rate 70 /min BP Systolic Sitting 112 mmHg LA, lg cuff- this Am BP Diastolic Sitting 64 mmHg LA, lg cuff- this Am BP Systolic Standing 118 mmHg LA, lg cuff-sitting BP Diastolic Standing 72 mmHg LA, lg cuff-sitting BMI (Body Mass Index) 37.4 kg/m2 Ejection Fraction 59% 11/18/14 Nem 11/28/2014 Height 69.5 inches 5'9.50" Weight 256.50 lb w/o shoes Heart Rate 62 /min reg BP Systolic Sitting 116 mmHg Rue, lg cuff BP Diastolic Sitting 74 mmHg Rue, lg cuff BP Systolic Standing 116 mmHg Rue BP Diastolic Standing 74 mmHg Rue Respiratory Rate 18 /min BMI (Body Mass Index) 37.3 kg/m2 Ejection Fraction 55-60% as of 11/16/14 echo 11/14/2014 Height 69.5 inches 5'9.50" Weight 255.00 lb w/o shoes Heart Rate 62 /min reg BP Systolic Sitting 114 mmHg Lue, lg cuff BP Diastolic Sitting 76 mmHg Lue, lg cuff BP Systolic Standing 110 mmHg Lue BP Diastolic Standing 78 mmHg Lue Respiratory Rate 18 /min BMI (Body Mass Index) 37.1 kg/m2 Ejection Fraction 50-55% as of 01/30/14 echo 09/27/2014 Height 69.5 inches 5'9.50" Weight 258.00 lb Heart Rate 78 /min BP Systolic Sitting 128 mmHg BP Diastolic Sitting 80 mmHg Pain Level 3 neck/L shoulder BMI (Body Mass Index) 37.5 kg/m2 09/26/2014 Height 69.5 inches 5'9.50" Weight 261.00 lb Pain Level 5 BMI (Body Mass Index) 38.0 kg/m2 09/12/2014 Height 69.5 inches 5'9.50" Weight 261.00 lb Pain Level 5 BMI (Body Mass Index) 38.0 kg/m2 08/22/2014 Height 69.5 inches 5'9.50" Weight 261.00 lb Heart Rate 69 /min BP Systolic 128 mmHg BP Diastolic 82 mmHg Pain Level 6 BMI (Body Mass Index) 38.0 kg/m2 08/02/2014 Height 69 inches 5'9" Weight 257.00 lb w/shoes Heart Rate 62 /min BP Systolic Sitting 120 mmHg LA reg cuff BP Diastolic Sitting 82 mmHg LA reg cuff Respiratory Rate 14 /min BMI (Body Mass Index) 37.9 kg/m2 05/02/2014 Height 69 inches 5'9" Weight 248.31 lb Heart Rate 68 /min reg BP Systolic 114 mmHg LA large cuff BP Diastolic 64 mmHg LA large cuff BMI (Body Mass Index) 36.7 kg/m2 02/08/2014 Height 69 inches 5'9" Weight 241.25 lb with shoes Heart Rate 80 /min irreg BP Systolic Sitting 118 mmHg LA reg cuff BP Diastolic Sitting 80 mmHg LA reg cuff BP Systolic Standing 120 mmHg LA reg cuff BP Diastolic Standing 84 mmHg LA reg cuff Respiratory Rate 17 /min BMI (Body Mass Index) 35.6 kg/m2 01/12/2014 Height 70 inches 5'10" Weight 247.75 lb Heart Rate 82 /min BP Systolic 110 mmHg LA reg cuff BP Diastolic 78 mmHg LA reg cuff BMI (Body Mass Index) 35.5 kg/m2 12/30/2013 Height 70 inches 5'10" Heart Rate 110 /min BP Systolic Sitting 108 mmHg BP Diastolic Sitting 70 mmHg 10/12/2013 Height 70 inches 5'10" Weight 247.00 lb Heart Rate 108 /min irregular BP Systolic Sitting 110 mmHg BP Diastolic Sitting 82 mmHg Respiratory Rate 16 /min BMI (Body Mass Index) 35.4 kg/m2 11/26/2012 Height 70 inches 5'10" Weight 260.00 lb Heart Rate 74 /min BP Systolic 114 mmHg BP Diastolic 73 mmHg BMI (Body Mass Index) 37.3 kg/m2 Results Test Date Test Result H/L Range Note Inr/Protime 06/09/2017 Inr 1.01 0.77-1.02 Laboratory test 06/09/2017 Point of Care 191 mg/dL High 70-100 1 finding Glucose Laboratory test 07/08/2016 Surgical Pathology SEE RESULT 2 finding BELOW Inr/Protime 07/08/2016 Inr 0.93 0.89-1.11 3 Laboratory test 07/08/2016 Point of Care 145 mg/dL High 74-106 4 finding Glucose CBC Auto Diff 07/03/2016 White Blood Count 7.3 10^3/uL 3.5-10.8 Red Blood Count 5.17 10^6/uL 4.0-5.4 Hemoglobin 13.3 g/dL Low 14.0-18.0 Hematocrit 41 % Low 42-52 Mean Corpuscular Volume 79 fL Low 80-94 Mean Corpuscular Hemoglobin 26 pg Low 27-31 Mean Corpuscular HGB Conc 33 g/dL 31-36 Red Cell Distribution Width 15 % 10.5-15 Platelet Count 198 10^3/uL 150-450 Mean Platelet Volume 9 um3 7.4-10.4 Abs Neutrophils 4.9 10^3/uL 1.5-7.7 Abs Lymphocytes 1.5 10^3/uL 1.0-4.8 Abs Monocytes 0.7 10^3/uL 0-0.8 Abs Eosinophils 0.2 10^3/uL 0-0.6 Abs Basophils 0 10^3/uL 0-0.2 Abs Nucleated RBC 0.01 10^3/uL Granulocyte % 67.0 % 38-83 Lymphocyte % 19.9 % Low 25-47 Monocyte % 9.7 % High 1-9 Eosinophil % 3.2 % 0-6 Basophil % 0.2 % 0-2 Nucleated Red Blood Cells % 0.1 Comp Metabolic Panel 07/03/2016 Sodium 134 mmol/L 133-145 Potassium 4.1 mmol/L 3.5-5.0 Chloride 100 mmol/L Low 101-111 Co2 Carbon Dioxide 30 mmol/L 22-32 Anion Gap 4 mmol/L 2-11 Glucose 130 mg/dL High 70-100 Blood Urea Nitrogen 9 mg/dL 6-24 Creatinine 0.78 mg/dL 0.67-1.17 BUN/Creatinine Ratio 11.5 8-20 Calcium 9.8 mg/dL 8.6-10.3 Total Protein 7.2 g/dL 6.4-8.9 Albumin 4.2 g/dL 3.2-5.2 Globulin 3.0 g/dL 2-4 Albumin/Globulin Ratio 1.4 1-3 Total Bilirubin 0.60 mg/dL 0.2-1.0 Alkaline Phosphatase 65 U/L 34-104 Alt 20 U/L 7-52 Ast 20 U/L 13-39 Egfr Non- 98.7 >60 Egfr 126.9 >60 5 CBC Auto Diff 04/24/2016 White Blood Count 5.9 10^3/uL 3.5-10.8 Red Blood Count 4.89 10^6/uL 4.0-5.4 Hemoglobin 13.0 g/dL Low 14.0-18.0 Hematocrit 39 % Low 42-52 Mean Corpuscular Volume 80 fL 80-94 Mean Corpuscular Hemoglobin 27 pg 27-31 Mean Corpuscular HGB Conc 33 g/dL 31-36 Red Cell Distribution Width 15 % 10.5-15 Platelet Count 159 10^3/uL 150-450 Mean Platelet Volume 10 um3 7.4-10.4 Abs Neutrophils 3.9 10^3/uL 1.5-7.7 Abs Lymphocytes 1.3 10^3/uL 1.0-4.8 Abs Monocytes 0.5 10^3/uL 0-0.8 Abs Eosinophils 0.2 10^3/uL 0-0.6 Abs Basophils 0 10^3/uL 0-0.2 Abs Nucleated RBC 0 10^3/uL Granulocyte % 66.1 % 38-83 Lymphocyte % 21.8 % Low 25-47 Monocyte % 8.7 % 1-9 Eosinophil % 2.6 % 0-6 Basophil % 0.8 % 0-2 Nucleated Red Blood Cells % 0 Comp Metabolic Panel 04/24/2016 Sodium 137 mmol/L 133-145 Potassium 3.8 mmol/L 3.5-5.0 Chloride 103 mmol/L 101-111 Co2 Carbon Dioxide 29 mmol/L 22-32 Anion Gap 5 mmol/L 2-11 Glucose 154 mg/dL High 70-100 Blood Urea Nitrogen 16 mg/dL 6-24 Creatinine 0.80 mg/dL 0.67-1.17 BUN/Creatinine Ratio 20.0 8-20 Calcium 9.1 mg/dL 8.6-10.3 Total Protein 6.9 g/dL 6.4-8.9 Albumin 4.2 g/dL 3.2-5.2 Globulin 2.7 g/dL 2-4 Albumin/Globulin Ratio 1.6 1-3 Total Bilirubin 0.80 mg/dL 0.2-1.0 Alkaline Phosphatase 60 U/L 34-104 Alt 23 U/L 7-52 Ast 20 U/L 13-39 Egfr Non- 95.8 >60 Egfr 123.3 >60 6 Basic Metabolic Panel 05/30/2014 Sodium 137 mmol/L 133-145 Potassium 4.1 mmol/L 3.5-5.0 Chloride 104 mmol/L 101-111 Co2 Carbon Dioxide 28 mmol/L 22-32 Anion Gap 5 mmol/L 2-11 Glucose 114 mg/dL High 70-100 Blood Urea Nitrogen 15 mg/dL 6-24 Creatinine 0.75 mg/dL 0.67-1.17 BUN/Creatinine Ratio 20.0 8-20 Calcium 9.6 mg/dL 8.6-10.3 Egfr Non- 103.9 >60 Egfr 133.6 >60 7 Laboratory test finding 05/30/2014 Magnesium 1.9 mg/dL 1.9-2.7 Basic Metabolic Panel 05/06/2014 Sodium 137 mmol/L 133-145 Potassium 4.1 mmol/L 3.5-5.0 Chloride 102 mmol/L 101-111 Co2 Carbon Dioxide 29 mmol/L 22-32 Anion Gap 6 mmol/L 2-11 Glucose 131 mg/dL High 70-100 Blood Urea Nitrogen 18 mg/dL 6-24 Creatinine 0.85 mg/dL 0.67-1.17 BUN/Creatinine Ratio 21.2 High 8-20 Calcium 9.3 mg/dL 8.6-10.3 Egfr Non- 89.9 >60 Egfr 115.6 >60 8 Laboratory test finding 05/06/2014 Magnesium 2.0 mg/dL 1.9-2.7 Laboratory test finding 12/31/2013 Ferritin 10.4 ng/mL Low 24-336 Vitamin B12 533 pg/mL 180-914 9 Haptoglobin 209 mg/dL 30 - 200 10 Iron & Iron Binding Capacity 12/31/2013 Iron 36 g/dL Low 50-212 Unsaturated Iron Binding 398 g/dL Total Iron Binding Capacity 434 g/dL 250-450 % Iron Saturation 8 % Low 15-55 Laboratory test finding 12/31/2013 LDH 125 U/L Low 140-271 Basic Metabolic Panel 12/31/2013 Sodium 135 mmol/L 133-145 Potassium 4.2 mmol/L 3.7-5.6 Chloride 103 mmol/L 101-111 Co2 Carbon Dioxide 26 mmol/L 22-32 Anion Gap 6 mmol/L 2-11 Glucose 145 mg/dL High 70-100 Blood Urea Nitrogen 15 mg/dL 6-24 Creatinine 0.73 mg/dL 0.67-1.17 BUN/Creatinine Ratio 20.5 High 8-20 Calcium 8.9 mg/dL 8.6-10.3 Egfr Non- 107.5 >60 Egfr 138.2 >60 11 CBC No Diff 12/31/2013 White Blood Count 6.7 10^3/uL 4.8-10.8 Red Blood Count 5.01 10^6/uL 4.0-5.4 Hemoglobin 12.4 g/dL Low 14.0-18.0 Hematocrit 38 % Low 42-52 Mean Corpuscular Volume 76 fL Low 80-94 Mean Corpuscular Hemoglobin 25 pg Low 27-31 Mean Corpuscular HGB Conc 33 g/dL 31-36 Red Cell Distribution Width 18 % High 10.5-15 Platelet Count 217 10^3/uL 150-450 Mean Platelet Volume 8 um3 7.4-10.4 Order 12/10/2013 Stress Test, Exercise <pending> Echocardiogram Surgical Pathology 12/14/2012 S RUN DATE: 12/16/ <SEE 12 NOTE> 1 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 PRE-OPERATIVE DIAGNOSIS Calculus of gallbladder without cholecystitis or obstruction GROSS DESCRIPTION The specimen is received in formalin labeled, Gallbladder and Contents, and consists of a 9.0 x 4.9 x 4.0 cm intact gallbladder. The serosa is predominantly smooth simmons-yellow with a small amount of adherent yellow fat. Within the lumen, there is a 2.0 x 1.7 x 1.3 cm green ovoid granular cholelith admixed with abundant green viscid bile. The mucosa is reticulated green with scant focal yellow stippling and the wall thickness averages 0.1 cm. Special Educator sections, one cassette. Signed (signature on file) Jose Manuel Sotelo MD 1006 END OF REPORT * ML=Testing performed at Main Lab DEPARTMENT OF PATHOLOGY, [address] [place] [address] Jose Manuel Sotelo M.D. Director [facility] # [id number] 3 Comment: On arrival to Same Day surgery--pre-op, pt on coum 4 Petroleum Refinery Worker: [id number] THACKER 5 Because ethnic data is not always readily available, this report includes an eGFR for both -Americans and non- Americans. The National Kidney Disease Education Program (NKDEP) does not endorse the use of the MDRD equation for patients that are not between the ages of 18 and 70, are , have extremes of body size, muscle mass, or nutritional status, or are non- or non-. According to the National Kidney Foundation, irrespective of diagnosis, the stage of the disease is based on the level of kidney function: Stage Description GFR(mL/min/1.73 m(2)) 1 Kidney damage with normal or decreased GFR 90 2 Kidney damage with mild decrease in GFR 60-89 3 Moderate decrease in GFR 30-59 4 Severe decrease in GFR 15-29 5 Kidney failure <15 (or dialysis) 6 Because ethnic data is not always readily available, this report includes an eGFR for both -Americans and non- Americans. The National Kidney Disease Education Program (NKDEP) does not endorse the use of the MDRD equation for patients that are not between the ages of 18 and 70, are , have extremes of body size, muscle mass, or nutritional status, or are non- or non-. According to the National Kidney Foundation, irrespective of diagnosis, the stage of the disease is based on the level of kidney function: Stage Description GFR(mL/min/1.73 m(2)) 1 Kidney damage with normal or decreased GFR 90 2 Kidney damage with mild decrease in GFR 60-89 3 Moderate decrease in GFR 30-59 4 Severe decrease in GFR 15-29 5 Kidney failure <15 (or dialysis) 7 Because ethnic data is not always readily available, this report includes an eGFR for both -Americans and non- Americans. The National Kidney Disease Education Program (NKDEP) does not endorse the use of the MDRD equation for patients that are not between the ages of 18 and 70, are , have extremes of body size, muscle mass, or nutritional status, or are non- or non-. According to the National Kidney Foundation, irrespective of diagnosis, the stage of the disease is based on the level of kidney function: Stage Description GFR(mL/min/1.73 m(2)) 1 Kidney damage with normal or decreased GFR 90 2 Kidney damage with mild decrease in GFR 60-89 3 Moderate decrease in GFR 30-59 4 Severe decrease in GFR 15-29 5 Kidney failure <15 (or dialysis) 8 Because ethnic data is not always readily available, this report includes an eGFR for both -Americans and non- Americans. The National Kidney Disease Education Program (NKDEP) does not endorse the use of the MDRD equation for patients that are not between the ages of 18 and 70, are , have extremes of body size, muscle mass, or nutritional status, or are non- or non-. According to the National Kidney Foundation, irrespective of diagnosis, the stage of the disease is based on the level of kidney function: Stage Description GFR(mL/min/1.73 m(2)) 1 Kidney damage with normal or decreased GFR 90 2 Kidney damage with mild decrease in GFR 60-89 3 Moderate decrease in GFR 30-59 4 Severe decrease in GFR 15-29 5 Kidney failure <15 (or dialysis) 9 Normal Range 180 to 914 Indeterminate Range 145 to 180 Deficient Range <145 10 Test Performed by: [place] [address] Wealth Management Director: Ralph Multani III, M.D. 11 Because ethnic data is not always readily available, this report includes an eGFR for both -Americans and non- Americans. The National Kidney Disease Education Program (NKDEP) does not endorse the use of the MDRD equation for patients that are not between the ages of 18 and 70, are , have extremes of body size, muscle mass, or nutritional status, or are non- or non-. According to the National Kidney Foundation, irrespective of diagnosis, the stage of the disease is based on the level of kidney function: Stage Description GFR(mL/min/1.73 m(2)) 1 Kidney damage with normal or decreased GFR 90 2 Kidney damage with mild decrease in GFR 60-89 3 Moderate decrease in GFR 30-59 4 Severe decrease in GFR 15-29 5 Kidney failure <15 (or dialysis) 12 RUN DATE: 12/16/12 [facility] LAB LIVE PAGE 1 RUN TIME: [address] [place] [id number] Specimen Inquiry Name: MILAGROS HUNTLEY JR : [address]: Ankit Petit MD Acct: [id number] Unit: [id number] AGE: 67 Location: OR Re12/14/12 SEX: M Status: REG [facility] [place] SPEC: [id number] DERIAN: 12/14/12- [facility] DR: Ankit Petit MD REQ: [id number] RECD: 12/14/12 STATUS: SOUT _ ORDERED: LEVEL III FINAL DIAGNOSIS Knee, right, shavings: Hyperplastic synovium with fibrosis, fibrocartilage with myxoid degeneration , and articular cartilage with degenerative features. PRE-OPERATIVE DIAGNOSIS Right knee meniscus tear GROSS DESCRIPTION The specimen is received in formalin labeled Milagros Huntley, Right Knee Shavings, and consists of a 3.5 x 1.8 x 2.5 cm. aggregate of yellow and white tissue fragments. Special Educator sections, one cassette. Signed (signature on file) Jose Manuel Sotelo MD 1534 END OF REPORT * ML=Testing performed at Main Lab DEPARTMENT OF PATHOLOGY, [address] [place] [address] Jose Manuel Sotelo M.D. Director [facility] Permit #[id number] Procedures Date CPT Code Description Status 06/09/2017 74649 Implant For Incisional/Ventral Hernia Repair Completed 06/09/2017 42598 Implant For Incisional/Ventral Hernia Repair Completed 06/09/2017 82541 Repair Hernia Incisional/Ventral Initial, Reducible Completed 06/09/2017 25567 Repair Hernia Incisional/Ventral Initial, Reducible Completed 05/01/2017 68964 EKG Tracing & Interpretation Completed 12/16/2016 14804 Treadmill Interp/Report Only Completed 12/16/2016 39310 Stress Test Supervsn W/Out I/R Completed 12/16/2016 01896 EKG, Interpretation Only Completed 07/24/2016 23104 Color Flow Doppler/Interp & Reprt Completed 07/24/2016 91951 Pulse Wave/Continuous-Interp.RPT Completed 07/24/2016 38706 Echocardiography, Transesophageal, Real Time W/Image 2D Completed W/W/O M-M 07/10/2016 58259 Event Monitor/Phys Review/Interp. Completed 07/08/2016 32405 Laparoscopy Cholecystectomy Completed 07/08/2016 63955 Laparoscopy Cholecystectomy Completed 07/02/2016 91453 EKG Tracing & Interpretation Completed 11/21/2015 31717 EKG Tracing & Interpretation Completed 04/03/2015 73591 ECHO Transthoracic, Real-Time 2D With Doppler And Color Completed Flow 03/06/2015 43632 EKG Tracing & Interpretation Completed 11/18/2014 69787 Stress Test Completed 11/18/2014 09716 Myocardial Perfusion Imaging Tomographic (Spect) Completed Multiple Studies 11/18/2014 53015 Myocardial Perfusion Imaging Tomographic (Spect) Completed Multiple Studies 11/16/2014 27884 ECHO Transthoracic, Real-Time 2D With Doppler And Color Completed Flow 11/15/2014 04950 Holter Monitoring 24 HR New Completed 11/14/2014 87780 Holter Monitoring 24 HR New Completed 09/12/2014 06038 Inject/Drain Joint/Bursa Major Completed 08/02/2014 39155 EKG Tracing & Interpretation Completed 05/26/2014 75696 Holter Monitor Review (24 hr)dr review & interp Completed only 05/26/2014 89644 ECG Monitor/Recording W/Visual Superimposition Scanning Completed 05/02/2014 91968 EKG Tracing & Interpretation Completed 02/08/2014 09865 EKG Tracing & Interpretation Completed 01/30/2014 03102 ECHO Transthorasic Realtime 2D W Doppler & Color Completed Flow Hosp 01/30/2014 12475 EKG, Interpretation Only Completed 01/26/2014 69209 EKG, Interpretation Only Completed 01/26/2014 82283 Cardioversion Completed 01/25/2014 Colonoscopy Completed 01/12/2014 29003 EKG Tracing & Interpretation Completed 12/31/2013 97041 EKG, Interpretation Only Completed 12/31/2013 91881 Cardioversion Completed 12/30/2013 83068 EKG Tracing & Interpretation Completed 12/10/2013 84050 Treadmill Interp/Report Only Completed 12/10/2013 91872 Stress Test Supervsn W/Out I/R Completed 12/08/2013 52524 Cardioversion Completed 12/08/2013 63884 EKG, Interpretation Only Completed 12/08/2013 43178 Echocardiography, Transesophageal, Real Time W/Image 2D Completed W/W/O M-M 12/08/2013 97910 Pulse Wave/Continuous-Interp.RPT Completed 12/08/2013 52287 Color Flow Doppler/Interp & Reprt Completed 11/03/2013 78421 EKG, Interpretation Only Completed 11/01/2013 95669 ECHO Transthoracic, Real-Time 2D With Doppler And Color Completed Flow 10/12/2013 04528 EKG Tracing & Interpretation Completed 04/30/2013 85563 Inject/Drain Joint/Bursa Major Completed 12/14/2012 50232 Arthroscopy,Knee,Meniscectomy Media & Lateral Completed 12/14/2012 15094 Arthroscopy,Knee,Meniscectomy Media & Lateral Completed 07/09/2012 16359 Xray Knee 3 Views Completed 07/09/2012 05720 Rad Exam; Knee, Ap&L Completed 04/15/2005 01611 Color Doppler Completed 04/15/2005 70573 Pulse Doppler & Continuous Wave Completed 04/15/2005 79086 Echocardiogram Completed Encounters Type Date Location Provider CPT E/M Dx Office Visit 05/13/2017 [facility], 23774 K43.2 9:45a Etienne ALDANA Office Visit 05/01/2017 [facility] 33060 I48.91 8:40a Etienne Ahmadi M.D. Z79.01 E66.9 I34.0 I10 R07.9 Office Visit 12/16/2016 3:22p [facility] [place] [address] R07.89 Ass, Hospitalists I48.91 M45.9 E11.9 Office Visit 08/29/2016 10:00a [facility] Sarah Ahmadi, 69214 I48.0 Bennie Z79.01 E66.9 I34.0 Office Visit 07/03/2016 3:30p [facility], 80993 K80.20 Of Etienne ALDANA Office Visit 07/02/2016 3:00p [facility] 83995 I48.0 Bennie Ahmadi I10 E66.9 I34.0 Office Visit 01/31/2016 1:30p [facility], 82069 K80.20 Of Etienne ALDANA R10.30 R19.7 Office Visit 11/21/2015 10:00a [facility] Milviataybmike Ahmadi, 23413 I48.91 Bennie I10 E66.9 I34.0 I36.1 R94.31 Office Visit 04/18/2015 9:00a [facility] DANIEL Newman 49940HLB I48.0 I10 E66.9 E66.09 Office Visit 03/06/2015 9:00a [facility] Sarah Ahmadi, 45282 I10 MRoyce E66.9 R53.83 R06.02 I48.0 Office Visit 02/23/2015 2:01p [facility] Kaur Byrne, 54403 K56.69 Hospitalists M.DThelma E11.9 Office Visit 02/22/2015 2:00p [facility] Kaur Byrne, 98739 K56.69 Hospitalists M.Moise E11.9 Office Visit 02/21/2015 1:59[place], [address] K56.69 Assoc, Hospitalists M.DThelma E11.9 Office Visit 12/14/2014 10:00a [facility] DANIEL Newman 37938 401.9 278.00 780.8 250.00 427.31 Office Visit 11/28/2014 9:30a [facility] DANIEL Newman 53694 780.79 427.31 401.9 250.00 278.00 Office Visit 11/14/2014 11:00a [facility] DANIEL Newman 05604 413.9 401.9 250.00 427.31 278.00 Office Visit 09/27/2014 9:40a [facility] Mika Fan, 90564 847.0 Of [facility] Bennie 723.4 Office Visit 09/26/2014 8:30a [facility], 69345 715.11 C.M.A. MRoyce 719.41 726.2 726.19 723.1 723.0 Office Visit 09/12/2014 9:45a [facility], 39742 719.41 C.M.A. MRoyce 715.11 726.19 726.2 723.1 723.0 Office Visit 08/22/2014 10:00a [facility], 89174 715.11 C.M.A. MRoyce 719.41 726.10 726.19 840.4 723.1 847.0 722.91 Office Visit 08/02/2014 8:30a [facility] DANIEL Newman 84628JPS 401.9 424.1 427.31 250.00 278.00 Office Visit 05/02/2014 3:20p [facility] Qutaybeh S. Maghaydah, 22489 427.31 M.D. 424.1 401.9 794.31 Office Visit 02/08/2014 2:00p [facility] Qutaybeh S. Maghaydah, 69478 427.31 M.D. 424.1 794.31 401.9 Office Visit 01/31/2014 11:09a [facility], Kendall Rea 04854 423.9 Hospitalists Bennie Cruz 427.31 514 250.40 Office Visit 01/30/2014 11:08a [facility], Kendall Rea 21662 423.9 Hospitalists Bennie Cruz 427.31 514 250.40 Office Visit 01/30/2014 10:05a [facility] Jose M Sotelo, 77235 427.31 Etienne Avery, [facility], FASTN 786.50 Office Visit 01/29/2014 11:08a [facility], Kendall Rea 03457 423.9 Hospitalists Bennie Cruz 427.31 514 250.40 Office Visit 01/26/2014 8:00a [facility] Qutaybeh S. haydah, 99000 427.31 M.D. Office Visit 01/12/2014 3:00p [facility] Qutaybeh S. Maghaydah, 70745 427.31 M.D. 401.9 785.0 250.00 Office Visit 12/31/2013 11:00a [facility] Qutaybeh S. Maghaydah, 39815 427.31 M.DThelma 427.31 Office Visit 12/30/2013 4:20p [facility] Qutaybeh S. Maghaydah, 08206 401.9 M.D. 785.0 794.31 Office Visit 12/10/2013 3:39p [facility], Gilson Lester, 59956 427.31 Hospitalists Bennie 786.59 401.9 250.00 Office Visit 12/09/2013 3:38p [facility], Gilson Lester, 72442 786.59 Hospitalists Bennie 427.31 401.9 250.00 Office Visit 12/08/2013 8:00a [facility] Milviatamike Ahmadi, 26029 427.31 M.D. 785.0 Office Visit 11/05/2013 11:23a [facility] Ass, Saul Iisdro M.D. 97972 560.9 Hospitalists 427.31 250.00 720.0 Office Visit 11/04/2013 11:22a [facility], Saul Isidro M.D. 48135 560.9 Hospitalists 427.31 250.00 720.0 Office Visit 11/03/2013 11:22a [facility], Saul Isidro M.D. 34776 560.9 Hospitalists 427.31 250.00 720.0 Office Visit 11/02/2013 11:21a [facility], Kendall Rea 15473 560.9 Hospitalists Bennie Cruz 427.31 250.00 720.0 Office Visit 10/12/2013 4:00p [facility] Danutamike Ahmadi, 31715 794.31 M.DThelma 427.31 307.49 780.79 278.00 327.23 Office Visit 04/30/2013 10:00a [facility] Hubert Dhaliwal 22670 840.4 Of C.MGianluca Nick R.P.A.-Hansa 726.10 Office Visit 04/02/2013 1:00p [facility] Ankit Pteit M.D. 44107 840.4 C.M.A. Office Visit 11/26/2012 9:00a [facility] Ankit Petit M.D. 77462 836.0 C.M.A. 715.96 Office Visit 07/09/2012 11:00a [facility] Ankit Petit M.D. 21483 836.0 C.M.A. 715.96 Plan of Care 06/17/2017 - Luda Odell, NPK43.2 Incisional hernia without obstruction or gangreneFollow up:As [id number] Encounter for change or removal of surgical wound dressing
[2017-07-05 17:08] LABS: ABS Basophils 0 10^3/ul (0-0.2); ABS Eosinophils 0.9 10^3/ul (0-0.6); ABS Lymphocytes 1.5 10^3/ul (1.0-4.8); ABS Monocytes 0.7 10^3/ul (0-0.8); ABS Nucleated RBC 0 10^3/ul; Eosinophil % 12.4 % (0-6); Hematocrit 39 % (42-52); Hemoglobin 13.3 g/dl (14.0-18.0); Lymphocyte % 20.9 % (25-47); Mean Corpuscular HGB Conc 34 g/dl (31-36); Mean Corpuscular Hemoglobin 26 pg (27-31); Mean Corpuscular Volume 77 fL (80-94); Mean Platelet Volume 9 um3 (7.4-10.4); Nucleated Red Blood Cells % 0; Platelet Count 182 10^3/ul (150-450); Red Blood Count 5.07 10^6/ul (4.0-5.4); Red Cell Distribution Width 17 % (10.5-15); White Blood Count 7.2 10^3/ul (3.5-10.8)
[2017-07-05 17:13] LABS: INR 2.43 (0.77-1.02)
[2017-07-05 17:24] LABS: EGFR Non-African American 101.4 (>60)
[2017-07-05] MEDS ORDERED: DOXYcycline CAP(*) 100 MG PO ONE (17:58)
[2017-07-05 18:44] VITALS: BP 126/83
--- NOTE | 2017-07-05 18:54 | ED ---
Cherelle Quinonez Abhishek, scribed for Gurmeet Pepper MD on 07/05/17 at 1749 . Skin Complaint - HPI Summary HPI Summary: This patient is a 72 year old M presenting to [facility] accompanied by female with a chief complaint of a skin infection post-surgery. Pt received a surgery on 04/14. Pt reports purulent drainage from surgical site as well as blood at the area of incision. He claims the site to be infected and that the symptoms have been present since 07/02/17. The surgery was stated to be a surgical hernia. Medications reviewed and reported. Allergies noted and reviewed. Pertinent PMHx includes DM. - History of Current Complaint Chief Complaint: EDAbdPain Time Seen by Provider: 07/05/17 16:20 Stated Complaint: POSSIBLY INFECTED SURGICAL INCISION Hx Obtained From: Patient Onset/Duration: Started Days Ago - since 07/02/17 Skin Exposure Onset/Duration: Days Ago - since 07/02/17 Timing: Constant Onset Severity: Moderate Current Severity: Moderate Pain Intensity: 5 Pain Scale Used: 0-10 Numeric Skin Location: Discrete - The periumbilical region Aggravating Symptom(s): Nothing Alleviating Symptom(s): Nothing Associated Signs & Symptoms: Drainage - purulent and blood - Additional Pertinent History Primary Care Physician: [id number] - Allergy/Home Medications Allergies/Adverse Reactions: Allergies Allergy/AdvReac Type Severity Reaction Status Date / Time morphine Allergy Severe Vomiting Verified 06/09/17 07:43 PMH/Surg Hx/FS Hx/Imm Hx Endocrine/Hematology History: Reports: Hx Anticoagulant Therapy - takes coumadin at home, Hx Diabetes - Type 2, Hx Anemia - history of, took iron for a period of time Denies: Hx Sickle Cell Disease Cardiovascular History: Reports: Hx Valvular Heart Disease Denies: Hx Angina, Hx Congestive Heart Failure, Hx Coronary Artery Disease, Hx Hypercholesterolemia, Hx Hypertension, Hx Myocardial Infarction, Hx Pacemaker /ICD, Other Cardiovascular Problems/Disorders Respiratory History: Reports: Hx Sleep Apnea Denies: Hx Asthma, Hx Chronic Obstructive Pulmonary Disease (COPD), Other Respiratory Problems/Disorders GI History: Reports: Hx Gastroesophageal Reflux Disease, Hx Obstructive Bowel - this admission, Other GI Disorders - Incisional hernia, above umbilicus History: Reports: Hx Benign Prostatic Hyperplasia, Other Problems/ Disorders - Had TURP procedure 2011 Denies: Hx Dialysis, Hx Renal Disease Musculoskeletal History: Reports: Hx Arthritis - Ankylosing spondylitis, Other Musculoskeletal History - R shoulder rotator cuff, L knee total replacement, R knee arthroscopy Sensory History: Reports: Hx Contacts or Glasses - Glasses, Hx Vision Problem, Hx Hearing Aid - states hears w/o it will leave home, inst given Denies: Hx Cataracts Opthamlomology History: Reports: Hx Contacts or Glasses - Glasses, Hx Vision Problem Denies: Hx Cataracts Neurological History: Reports: Other Neuro Impairments/Disorders - Restless leg , left hand tremor Psychiatric History: Denies: Hx Panic Disorder - Surgical History Surgery Procedure, Year, and [place] [facility] [place] [facility] [place] [facility] [place] [facility] [place] [facility] [place] [facility] AT [facility] 2013. GALLBLADDER 2016 Hx Anesthesia Reactions: No Infectious Disease History: No Infectious Disease History: Denies: Hx of Known/Suspected MRSA, Traveled Outside the in Last 30 Days - Family History Known Family History: Positive: Diabetes Negative: Cardiac Disease - Social History Alcohol Use: None Substance Use Type: Reports: None Smoking Status (MU): Never Smoked Tobacco Type: Pipe Have You Smoked in the Last Year: No Review of Systems Constitutional: Negative Eyes: Negative ENT: Negative Cardiovascular: Negative Respiratory: Negative Gastrointestinal: Negative Genitourinary: Negative Musculoskeletal: Negative Skin: Other - Periumbilica surgical incision that exhibits purulent drainage and blood Neurological: Negative Psychological: Normal All Other Systems Reviewed And Are Negative: Yes Physical Exam - Summary Physical Exam Summary: Appearance: Well-appearing, Well-nourished Skin: Warm, Dry, No rash, small area of erythema Periumbilical at the site of hernia drain With some purulent drainage Eyes: Normal, PERRL, EOMI, sclera anicteric ENT: Normal Neck: Supple, nontender Respiratory: Clear to auscultation Cardiovascular: S1, S2, no murmur, no rub, no gallop Abdomen: Soft, nontender, no organomegaly Bowel sounds: Present Musculoskeletal: Normal, Strength/ROM Intact, no edema, pulses symmetrical Neurological: Normal, A&Ox3, cranial nerves II-XII WNL, follows commands, gait not tested, sensation intact to pin and light touch Psychiatric: affect normal, behavior appropriate, dressed appropriately, judgment intact Triage Information Reviewed: Yes Vital Signs On Initial Exam: Initial Vitals Temp Pulse Resp BP Pulse Ox 97.6 F 61 18 152/95 99 07/05/17 16:02 07/05/17 16:02 07/05/17 16:02 07/05/17 16:02 07/05/17 16:02 Vital Signs Reviewed: Yes Diagnostics - Vital Signs Vital Signs Temp Pulse Resp BP Pulse Ox 07/05/17 17:30 64 133/78 97 07/05/17 17:06 63 97 07/05/17 17:04 136/84 07/05/17 16:02 97.6 F 61 18 152/95 99 - Laboratory Lab Results: Lab Results 07/05/17 07/05/17 07/05/17 Range/Units 17:00 17:00 17:00 WBC 7.2 (3.5-10.8) 10^3/ul RBC 5.07 (4.0-5.4) 10^6/ul Hgb 13.3 L (14.0-18.0) g/dl Hct 39 L (42-52) % MCV 77 L (80-94) fL MCH 26 L (27-31) pg MCHC 34 (31-36) g/dl RDW 17 H (10.5-15) % Plt Count 182 (150-450) 10^3/ul MPV 9 (7.4-10.4) um3 Neut % (Auto) 55.8 (38-83) % Lymph % (Auto) 20.9 L (25-47) % [place] % (Auto) 10.3 H (0-7) % Eos % (Auto) 12.4 H (0-6) % Baso % (Auto) 0.6 (0-2) % Absolute Neuts (auto) 4.0 (1.5-7.7) 10^3/ul Absolute Lymphs (auto) 1.5 (1.0-4.8) 10^3/ul Absolute Monos (auto) 0.7 (0-0.8) 10^3/ul Absolute Eos (auto) 0.9 H (0-0.6) 10^3/ul Absolute Basos (auto) 0 (0-0.2) 10^3/ul Absolute Nucleated RBC 0 10^3/ul Nucleated RBC % 0 INR (Anticoag Therapy) 2.43 H (0.77-1.02) Sodium 132 L (133-145) mmol/L Potassium 3.9 (3.5-5.0) mmol/L Chloride 101 (101-111) mmol/L Carbon Dioxide 25 (22-32) mmol/L Anion Gap 6 (2-11) mmol/L BUN 14 (6-24) mg/dL Creatinine 0.76 (0.67-1.17) mg/dL Est GFR ( Amer) 130.4 (>60) Est GFR (Non-Af Amer) 101.4 (>60) BUN/Creatinine Ratio 18.4 (8-20) Glucose 141 H (70-100) mg/dL Calcium 9.6 (8.6-10.3) mg/dL Total Bilirubin 0.80 (0.2-1.0) mg/dL AST 17 (13-39) U/L ALT 18 (7-52) U/L Alkaline Phosphatase 62 (34-104) U/L C-Reactive Protein Pending Total Protein 7.4 (6.4-8.9) g/dL Albumin 4.1 (3.2-5.2) g/dL Globulin 3.3 (2-4) g/dL Albumin/Globulin Ratio 1.2 (1-3) Result Diagrams: 07/05/17 17:00 07/05/17 17:00 Lab Statement: Any lab studies that have been ordered have been reviewed, and results considered in the medical decision making process. Course/Dx - Course Course Of Treatment: The pt is a 72 y/o M patient with a chief complaint of a purulent and erythematous post-surgerical incision site inferior to the periumbilical region. The dx will be wound infection. The pt will be discharged home. - Diagnoses Provider Diagnoses: Wound infection Discharge - Discharge Plan Condition: Fair Disposition: HOME Prescriptions: DOXYcycline CAP(*) [DOXYcycline 100MG CAP(*)] 100 mg PO BID #14 cap Patient Education Materials: MRSA (Methicillin-Resistant Staphylococcus Aureus ) (ED) Referrals: Marc Patel MD [Primary Care Provider] - The documentation as recorded by the Cherelle kaplan Abhishek accurately reflects the service I personally performed and the decisions made by , Gurmeet Pepper MD.
--- NOTE | 2017-07-06 10:58 | ED ---
Progress - Progress Note Progress Note: Pt's wound cx reveals staph aureus. Pt was started on doxycycline. No change in tx at this time - pending final results. Course/Dx - Course Course Of Treatment: The pt is a 72 y/o M patient with a chief complaint of a purulent and erythematous post-surgerical incision site inferior to the periumbilical region. The dx will be wound infection. The pt will be discharged home. - Diagnoses Provider Diagnoses: Wound infection
== END 2017-07-05 18:51 | disposition home or self-care (01) ==
LOC: ED 15:58
DX: T81.4XXA Infection following a procedure, initial encounter (principal); B95.61 Methicillin susceptible Staphylococcus aureus infection as the cause of diseases classified elsewhere; Y84.8 Other medical procedures as the cause of abnormal reaction of the patient, or of later complication, without mention of misadventure at the time of the procedure; Z79.01 Long term (current) use of anticoagulants; E11.9 Type 2 diabetes mellitus without complications; K21.9 Gastro-esophageal reflux disease without esophagitis; M45.9 Ankylosing spondylitis of unspecified sites in spine
CPT/HCPCS: 36415; 80053; 85025; 85610; 86140; 87070; 87077; 87186; 87205; 87640; 87641; 99282; A9270-GY

== ENCOUNTER 2018-05-13 07:30 | Inpatient (IN) | payer MEDICARE ==
--- NOTE | 2018-05-05 13:50 | HP ---
PREOPERATIVE HISTORY AND PHYSICAL: DATE OF ADMISSION/SURGERY: 05/13/18 DATE OF OFFICE VISIT: 05/05/18 ATTENDING SURGEON: Dr. Dario Lynch.* (DICTATED BY DANIEL RÍOS) PROCEDURE: Right total shoulder reverse. CHIEF COMPLAINT: Right shoulder pain. HISTORY OF PRESENT ILLNESS: Dnaie is a 73-year-old male who presents to the clinic for right shoulder pain due to osteoarthritis and a rotator cuff tear. He has failed conservative measures and therefore agreed to undergo a right total shoulder reverse with Dr. Lynch on 05/13/18. PAST MEDICAL HISTORY: AFib, hypertension, osteoarthritis, diabetes type 2, anemia, GERD. PAST SURGICAL HISTORY: Right shoulder rotator cuff repair, left total knee arthroplasty, prostate surgery, hernia repair, cardiac ablation and knee manipulation under anesthesia of the left knee. The patient denies prior complications from anesthesia. MEDICATIONS: 1. Magnesium 400 mg 1 by mouth daily. 2. Klor-Con 20 mEq 1 by mouth daily. 3. Cardizem 120 mg 1 by mouth once a day. 4. Pantoprazole 40 mg 1 by mouth twice a day. 5. Metformin 1000 mg twice a day. 6. Multivitamin 1 cap daily. 7. Tikosyn 500 mcg 1 by mouth twice a day. 8. Amoxicillin 500 mg 4 tabs 1 hour before dental work. 9. Eszopiclone 3 mg 1 at bedtime. 10. Benadryl 25 mg 1 tab in the evening. 11. Warfarin 5 mg one and a half tabs daily or as directed. 12. Pramipexole dihydrochloride 0.125 mg 1 by mouth 2 hours prior to bedtime. ALLERGIES: MORPHINE which causes stomach upset. FAMILY HISTORY: Positive for diabetes. SOCIAL HISTORY: He lives with his spouse. 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 He denies tobacco or alcohol use. He is right-hand dominant. REVIEW OF SYSTEMS: A 14-point review of systems was reviewed with the patient. Positive for current complaint, otherwise negative. Denies fevers, chills, chest pain, shortness of breath, history of bleeding disorder, history of DVT or PE. PHYSICAL EXAMINATION GENERAL: A 73-year-old well-developed, well-nourished male, in no acute distress. VITAL SIGNS: Height 69.5, weight 238, pulse 77, blood pressure 116/74, respiratory rate 16, BMI 34.6. HEENT: Normocephalic, atraumatic. PERRLA. Throat: Clear. NECK: Supple. PULMONARY: Lungs are clear to auscultation bilaterally. No wheezing, rhonchi, or rales. CARDIO: Regular rate and rhythm. S1, S2. No murmurs, gallops, or rubs. No edema. ABDOMEN: Positive bowel sounds, soft, nontender. NEURO: Alert and oriented x3. Cranial nerves grossly intact. MUSCULOSKELETAL: Right upper extremity, skin is intact. No warmth or erythema. Tenderness over the joint line. Forward flexion and abduction to 65, passively able to move further. +4/5 strength to rotator cuff testing with pain. +2 radial pulse. Sensation intact to light touch distally. DIAGNOSTIC STUDIES: MRI revealed full-thickness rotator cuff tear, subluxation of the humeral head and glenohumeral joint osteoarthritis. IMPRESSION: Right shoulder osteoarthritis, rotator cuff tear. PLAN: The patient is scheduled to undergo a right total shoulder reverse with Dr. Lynch on 05/13/18. He will follow up 10 to 14 days postop for followup and suture removal. Percocet will be used for postop pain management. His Coumadin will be held 4 days prior to surgery and will be resumed postoperatively. DANIEL RÍOS [id number]/[facility] #: [id number] MTDColby
[~2018-05-13 07:30] MED LIST changes: -Buffered Lidocaine 0.9% SYRIN* 5 ML/SYR SYRINGE INTRADERM ONE; -Buffered Lidocaine 0.9% SYRIN* 5 ML/SYR SYRINGE ONE; +Buffered Lidocaine 1% SYRIN* 1 ML/SYRINGE INTRADERM ONE; -Bupivacaine 0.25% SDV* 30 ML ONE; -Dexamethasone IV* 4 MG/ML 1 ML (4 MG) ONE; +Dexamethasone TAB* 4 MG PO ONE; +DiMENhydriNATE IV* 50 MG/ML VIAL IV PUSH PRN; -DiMENhydriNATE IV* 50 MG/ML VIAL ONE; -Famotidine IV* 10 MG/ML 2 ML (20 mg) ONE; +Gabapentin CAP(*) 300 MG PO ONE; +HYDROmorphone INJ1* 1 MG/ML SYRINGE IV PRN; -KETAMINE HCL* 50 MG/ML 10 ML VIAL ONE; -Ketorolac INJ* 30 MG/ML 1 ML VIAL ONE; +Lactated Ringers 1000 ML Bag* 1,000 ML IV SCH; -Lidocaine 1% INJ* 10 MG/ML 30 ML SDV ONE; -Lidocaine 2% PF * 5 ML VIAL ONE; -Midazolam* 1 MG/ML 10 ML VIAL (10 MG) ONE; -Ondansetron INJ* 2 MG/ML VIAL ONE; +Ondansetron TAB* 4 MG PO ONE; +PROCHLORPERAZINE INJ 5 MG/ML 2 ML VIAL IV PRN; -Propofol* 10 MG/ML 20 ML BTL IV PUSH ONE; +Scopolamine 1.5 mg* PATCH TRANSDERM PRN; -ceFAZolin 2 GM PREMIX (*) 2 GM/50 ML BAG IVPB ONE; -fentaNYL* 50 MCG/ML 2 ML VIAL (100 MCG VIAL) ONE; -oxyCODONE/Acetamin 5/325 MG* TAB ONE
[2018-05-13] MEDS ORDERED: Atracurium* 10 MG/ML 10 ML VIAL ONE (08:09)
[2018-05-13] MEDS ORDERED: fentaNYL* 50 MCG/ML 5 ML VIAL (250 MCG VIAL) ONE (08:09)
[2018-05-13] MEDS ORDERED: KETAMINE HCL* 50 MG/ML 10 ML VIAL ONE (08:10)
[2018-05-13] MEDS ORDERED: Midazolam* 1 MG/ML 5 ML VIAL (5 MG) ONE (08:10)
[2018-05-13] MEDS ORDERED: Dexamethasone TAB* 4 MG ONE (08:40)
[2018-05-13] MEDS ORDERED: Ondansetron ODT TAB* 4 MG ONE (08:40)
[2018-05-13] MEDS ORDERED: ceFAZolin 2 GM PREMIX in ORs 2 GM/50 ML BAG IVPB ONE (08:40)
[2018-05-13] MEDS ORDERED: Famotidine IV* 10 MG/ML 2 ML (20 mg) ONE (08:40)
[2018-05-13] MEDS ORDERED: Gabapentin CAP(*) 300 MG PO ONE (09:00)
[2018-05-13] MEDS ORDERED: Gabapentin CAP(*) 300 MG ONE (09:09)
--- OUTSIDE RECORDS SUMMARY | 2018-05-13 09:17 | XMS REPORT | Continuity of Care Document ---
:1945 External Reference #:[id number] Author Name Soumya Dempsey Care Team Providers Name Role Phone Marc Patel MD Primary Care Physician Unavailable Payers Type Date Identification Numbers Payment Provider Subscriber Effective: Policy Number: Medicare Blue Ppo Milagros Huntley JR 2015 [id number] Group Number: [id number] [address] [id number] PayID: [id number] SUSAN Schultz [id number] Advance Directives Description No Information Available Problems Date Description Provider Status Onset: 10/12/2013 [...] Onset: 08/22/2014 Strain of rotator cuff capsule Mikye Salazar M.D. Active Onset: 08/22/2014 Neck pain Mikey Salazar M.D. Active Onset: 08/22/2014 Neck sprain Mikey Salazar M.D. Active Onset: 08/22/2014 Cervical disc disorder Mikey Salazar M.D. Active Onset: 09/12/2014 Spinal stenosis in cervical region Mikey Salazar M.D. 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 daily Bennie Ahmadi Klor-Con M20 12/26/ Active Tablets ER 20Meq 90tab 1 by mouth Qutaybeh 2016 s every day Ramone Ahmadi M.D. Cardizem CD 11/28/ Active Caps ER 120mg 90cap 1 by mouth I48.0 Qutaybeh 2014 24HR s once a day Ramone Ahmadi M.D. Pantoprazole / Active Tablets DR 40mg 90tab 1 po bid Unknown Sodium 0000 s Metformin HCL / Active Tablets 1000mg 60tab bid Unknown 0000 s Multivitamins / Active Capsules 90cap 1 capsule Unknown 0000 s daniela;y Tikosyn / Active Capsules 500mcg 180ca 1 by mouth Qutaybeh 0000 ps twice a S. day Bennie Ahmadi Amoxicillin / Active Capsules 500mg 4 tablets Unknown 0000 1 hour before dental work Eszopiclone / Active Tablets 3mg 1 tab each Unknown 0000 night at bedtime by mouth as needed insomnia. Cpap 00/ Active Device Unknown 0000 Benadryl Allergy / Active Capsules 25mg take1 Unknown 0000 tablet as needed in evening Warfarin Sodium / Active Tablets 5mg 100ta 7.5 mg Qutaybeh 0000 bs daily S. except [facility] tues 5 mg Bennie or as directed Pramipexole / Active Tablets 0.125mg 1 tab by Jorge, Jarvischloride 0000 mouth 2 Marc Braun., hours MD prior to bed time Klor-Con 12/26/ Hx Tablets ER 20Meq 30tab 1 by mouth Qutaybeh 2016 - s every day S. 12/26/ [facility] 2016 Bennie Potassium 04/11/ Hx Tablets ER 20Meq 90tab 1 by mouth Qutaybeh Chloride ER 2013 - s every day S. 08/21/ [facility] 2014 Bennie Flecainide 02/07/ Hx Tablets 100mg 90tab 1 by mouth Qutaybeh Acetate 2013 - s twice a S. 05/01/ day [facility] 2014 Bennie Flecainide 01/12/ Hx Tablets 50mg 90tab 1 bid Qutaybeh Acetate 2013 - s S. 02/07/ [facility] 2013 Bennie Flecainide 12/30/ Hx Tablets 50mg 60tab 1 by mouth Qutaybeh Acetate 2013 - s bid S. 01/12/ [facility] 2013 Bennie Atenolol 10/12/ Hx Tablets 25mg 30tab 1 by mouth Qutaybeh 2013 - s every day S. 11/28/ [facility] 2015 Bennie Coumadin 10/12/ Hx Tablets 5mg 30tab one by Qutaybeh 2013 - s mouth S. 08/21/ day [facility] 2015 or as , Bennie directed. Ropinirole HCL / Hx Tablets 0.25mg 3 po qhs Unknown 0000 Aspirin / Hx Tablets 325mg 1 by mouth Unknown 0000 - every day 2013 Atenolol 00/00/ Hx Tablets 25mg 90tab 1/2 by Unknown 0000 - s mouth 10/12/ every day 2013 Calcium + D 00/00/ Hx Chewtabs 500-1000- every day Unknown 0000 - 40mg-[facility]- [facility] [place] Glucosamine 1500 /00/ Hx Capsules 1500Com 2 po qd Unknown Complex 0000 - 2017 Prednisone 00/00/ Hx Tablets 10mg 30tab 1/2 bid, Unknown 0000 - s Thurs 05/01/ (02/10) 2014 decreased to 1/2 daily then 02/14 stop Iron 00/ Hx Tablets 325(65Fe) 1 by mouth Unknown 0000 - mg every day( 05/17/ started 1 2014 week ago) Ampicillin 00/ Hx Capsules 250mg 30cap 4 cap po Unknown 0000 - s 1/2 hour 08/21/ before 2015 dental visits Magnesium /00/ Hx Capsules 400mg 90cap 1 by mouth Qutaybeh 0000 - s every day S. 11/16/ Daiana 2014 Bennie Ambien 00/ Hx Tablets 5mg 5tabs 1 by mouth Unknown 0000 - tablet at 08/21/ bedtime as 2015 needed Calcium 1200 /00/ Hx Chewtabs 2366-5373 1 by mouth Unknown 0000 mg-Unit every day Klor-Con M20 00/ Hx Tablets ER 20Meq 90tab 1 by mouth Qutaybeh 0000 - s every day S. 07/01/ Helen 2017 Bennie Jantoven 00/ Hx Tablets 5mg 100ta 1 by mouth Qutaybeh 0000 - bs on odd S. 01/30/ , 1 [facility] 04/29 mon, Bennie wed, fri Move Free 00/ Hx 1 po qd Unknown 0000 - 2016 Klor-Con /00/ Hx Packet 20Meq 30uni 1 by mouth Qutaybeh 0000 - ts every day S. 12/26/ Daiana Govea M.D. Osteo Bi-Flex 00/ Hx Tablets 250-200mg 2 tablets Unknown Regular Strength 0000 - by mouth 12/09/ daily 2018 Doxycycline 00/00/ Hx Capsules 100mg one tablet Unknown Hyclate 0000 twice daily for 10 days. Medications Administered in Office Medication Date Status Form Strength Qnty SIG Indications Ordering Provider Triamcinolone 02/12/ Administered Injection Zaneb (Kenalog) 2017 MD Syed Technetium TC 11/18/ Administered Injection Brandon DThelma 99M 2014 Bennie Bains Tetrofosmin, Per Unit Dose Up To 40 Millicuries Technetium TC 11/18/ Administered Injection Vera 99M 2014 Frederick Staley M.D. Per Unit Dose Up To 40 Millicuries Depomedrol 80MG 09/12/ Administered Injection Mikey Villagomez 2014 Bennie Salazar Depomedrol 80MG 04/30/ Administered Injection Hubert 2013 Jessi Williamson Immunizations Description No Information Available Vital Signs Date Vital Result Comment 05/05/2018 9:14am Height 69.5 inches 5'9.50" Weight 238.00 lb Heart Rate 77 /min BP Systolic 116 mmHg BP Diastolic 74 mmHg Respiratory Rate 16 /min Body Temperature 97.8 F Pain Level 8 BMI (Body Mass Index) 34.6 kg/m2 03/26/2018 8:27am Height 69.5 inches 5'9.50" Weight 235.00 lb BP Systolic 132 mmHg BP Diastolic 84 mmHg Respiratory Rate 17 /min Body Temperature 97.9 F Pain Level 6 BMI (Body Mass Index) 34.2 kg/m2 02/12/2018 11:42am Height 69.5 inches 5'9.50" Weight 235.75 lb Heart Rate 72 /min BP Systolic Sitting 118 mmHg BP Diastolic Sitting 72 mmHg Respiratory Rate 16 /min Body Temperature 98.7 F Pain Level 5 BMI (Body Mass Index) 34.3 kg/m2 12/10/2017 3:43pm Height 69.5 inches 5'9.50" Weight 213.00 lb W/ Shoes Heart Rate 68 /min BP Systolic Sitting 134 mmHg Lue Large Cuff BP Diastolic Sitting 80 mmHg Lue Large Cuff BMI (Body Mass Index) 31.0 kg/m2 Ejection Fraction 55-60% Tian 07/24/16 09/09/2017 9:06am Heart Rate 68 /min BP Systolic 122 mmHg BP Diastolic 70 mmHg Respiratory Rate 18 /min Body Temperature 97.1 F 08/12/2017 10:02am Heart Rate 66 /min Respiratory Rate 18 /min Body Temperature 97.0 F 08/05/2017 10:10am Heart Rate 78 /min Respiratory Rate 16 /min Body Temperature 98.2 F 07/29/2017 10:11am Heart Rate 78 /min BP Systolic 134 mmHg BP Diastolic 88 mmHg Respiratory Rate 18 /min Body Temperature 97.7 F 07/25/2017 9:22am Heart Rate 76 /min Respiratory Rate 16 /min Body Temperature 97.1 F 07/24/2017 11:41am Heart Rate 72 /min Respiratory Rate 16 /min Body Temperature 96.8 F 07/23/2017 4:08pm Heart Rate 84 /min Respiratory Rate 16 /min Body Temperature 98.7 F 07/22/2017 11:20am Heart Rate 68 /min BP Systolic 130 mmHg BP Diastolic 80 mmHg Respiratory Rate 18 /min Body Temperature 98.8 F 07/14/2017 1:31pm Heart Rate 78 /min Respiratory Rate 18 /min Body Temperature 97.7 F 07/07/2017 1:03pm Heart Rate 78 /min Respiratory Rate 16 /min Body Temperature 98.7 F 06/17/2017 11:07am Heart Rate 78 /min Respiratory Rate 20 /min Body Temperature 97.9 F 05/13/2017 10:08am Height 69 inches 5'9" Weight 231.00 lb Heart Rate 76 /min BP Systolic 134 mmHg BP Diastolic 80 mmHg Respiratory Rate 16 /min Body Temperature 98.1 F BMI (Body Mass Index) 34.1 kg/m2 08/29/2016 9:54am Height 69 inches 5'9" Weight 243.00 lb with shoes Heart Rate 82 /min BP Systolic Sitting 126 mmHg LA lrg cuff BP Diastolic Sitting 74 mmHg LA lrg cuff BMI (Body Mass Index) 35.9 kg/m2 Ejection Fraction 55% - 60% Tian 07/24/16 07/16/2016 10:09am Heart Rate 66 /min BP Systolic 122 mmHg BP Diastolic 76 mmHg Respiratory Rate 18 /min Body Temperature 97.8 F 07/03/2016 3:41pm Heart Rate 66 /min BP Systolic 138 mmHg BP Diastolic 86 mmHg Respiratory Rate 18 /min Body Temperature 97.6 F 07/02/2016 2:45pm Height 69 inches 5'9" Weight 245.75 lb with shoes Heart Rate 82 /min BP Systolic Sitting 136 mmHg LA reg cuff BP Diastolic Sitting 80 mmHg LA reg cuff BMI (Body Mass Index) 36.3 kg/m2 Ejection Fraction 60% - 65% echo 04/03/15 01/31/2016 1:44pm Height 69 inches 5'9" Weight 230.00 lb Heart Rate 72 /min BP Systolic 136 mmHg BP Diastolic 84 mmHg Respiratory Rate 18 /min Body Temperature 99.1 F BMI (Body Mass Index) 34.0 kg/m2 11/21/2015 9:44am Height 69.5 inches 5'9.50" Weight 242.75 lb with shoes Heart Rate 78 /min BP Systolic Sitting 124 mmHg LA lrg cuff BP Diastolic Sitting 68 mmHg LA lrg cuff BMI (Body Mass Index) 35.3 kg/m2 Ejection Fraction 60%-65% echo 04/03/15 04/18/2015 8:56am Height 69.5 inches 5'9.50" Weight 254.00 lb w/shoes Heart Rate 70 /min BP Systolic Sitting 130 mmHg LA lg cuff BP Diastolic Sitting 78 mmHg LA lg cuff BMI (Body Mass Index) 37.0 kg/m2 Ejection Fraction 60-65 echo 04/03/15 03/06/2015 8:34am Height 69.5 inches 5'9.50" Weight 252.00 lb Heart Rate 72 /min BP Systolic Sitting 122 mmHg BP Diastolic Sitting 80 mmHg BMI (Body Mass Index) 36.7 kg/m2 Ejection Fraction 59% Nem rest 12/14/2014 9:57am Height 69.5 inches 5'9.50" Weight 257.25 lb Heart Rate 70 /min BP Systolic Sitting 112 mmHg LA, lg cuff- this Am BP Diastolic Sitting 64 mmHg LA, lg cuff- this Am BP Systolic Standing 118 mmHg LA, lg cuff-sitting BP Diastolic Standing 72 mmHg LA, lg cuff-sitting BMI (Body Mass Index) 37.4 kg/m2 Ejection Fraction 59% 11/18/14 Nem 11/28/2014 9:16am Height 69.5 inches 5'9.50" Weight 256.50 lb w/o shoes Heart Rate 62 /min reg BP Systolic Sitting 116 mmHg Rue, lg cuff BP Diastolic Sitting 74 mmHg Rue, lg cuff BP Systolic Standing 116 mmHg Rue BP Diastolic Standing 74 mmHg Rue Respiratory Rate 18 /min BMI (Body Mass Index) 37.3 kg/m2 Ejection Fraction 55-60% as of 11/16/14 echo 11/14/2014 11:08am Height 69.5 inches 5'9.50" Weight 255.00 lb w/o shoes Heart Rate 62 /min reg BP Systolic Sitting 114 mmHg Lue, lg cuff BP Diastolic Sitting 76 mmHg Lue, lg cuff BP Systolic Standing 110 mmHg Lue BP Diastolic Standing 78 mmHg Lue Respiratory Rate 18 /min BMI (Body Mass Index) 37.1 kg/m2 Ejection Fraction 50-55% as of 01/30/14 echo 09/27/2014 9:37am Height 69.5 inches 5'9.50" Weight 258.00 lb Heart Rate 78 /min BP Systolic Sitting 128 mmHg BP Diastolic Sitting 80 mmHg Pain Level 3 neck/L shoulder BMI (Body Mass Index) 37.5 kg/m2 09/26/2014 8:36am Height 69.5 inches 5'9.50" Weight 261.00 lb Pain Level 5 BMI (Body Mass Index) 38.0 kg/m2 09/12/2014 10:12am Height 69.5 inches 5'9.50" Weight 261.00 lb Pain Level 5 BMI (Body Mass Index) 38.0 kg/m2 08/22/2014 10:45am Height 69.5 inches 5'9.50" Weight 261.00 lb Heart Rate 69 /min BP Systolic 128 mmHg BP Diastolic 82 mmHg Pain Level 6 BMI (Body Mass Index) 38.0 kg/m2 08/02/2014 8:48am Height 69 inches 5'9" Weight 257.00 lb w/shoes Heart Rate 62 /min BP Systolic Sitting 120 mmHg LA reg cuff BP Diastolic Sitting 82 mmHg LA reg cuff Respiratory Rate 14 /min BMI (Body Mass Index) 37.9 kg/m2 05/02/2014 2:46pm Height 69 inches 5'9" Weight 248.31 lb Heart Rate 68 /min reg BP Systolic 114 mmHg LA large cuff BP Diastolic 64 mmHg LA large cuff BMI (Body Mass Index) 36.7 kg/m2 02/08/2014 1:35pm Height 69 inches 5'9" Weight 241.25 lb with shoes Heart Rate 80 /min irreg BP Systolic Sitting 118 mmHg LA reg cuff BP Diastolic Sitting 80 mmHg LA reg cuff BP Systolic Standing 120 mmHg LA reg cuff BP Diastolic Standing 84 mmHg LA reg cuff Respiratory Rate 17 /min BMI (Body Mass Index) 35.6 kg/m2 01/12/2014 2:52pm Height 70 inches 5'10" Weight 247.75 lb Heart Rate 82 /min BP Systolic 110 mmHg LA reg cuff BP Diastolic 78 mmHg LA reg cuff BMI (Body Mass Index) 35.5 kg/m2 12/30/2013 4:08pm Height 70 inches 5'10" Heart Rate 110 /min BP Systolic Sitting 108 mmHg BP Diastolic Sitting 70 mmHg 10/12/2013 3:45pm Height 70 inches 5'10" Weight 247.00 lb Heart Rate 108 /min irregular BP Systolic Sitting 110 mmHg BP Diastolic Sitting 82 mmHg Respiratory Rate 16 /min BMI (Body Mass Index) 35.4 kg/m2 11/26/2012 9:12am Height 70 inches 5'10" Weight 260.00 lb Heart Rate 74 /min BP Systolic 114 mmHg BP Diastolic 73 mmHg BMI (Body Mass Index) 37.3 kg/m2 Results Test Date Facility Test Result H/L Range Note Basic Metabolic 01/14/2018 [facility] Sodium 138 mmol/L N 135- [address] [place] [address] [phone] Potassium 4.6 mmol/L N 3.5-5.0 Chloride 103 mmol/L N 101-111 Co2 Carbon Dioxide 28 mmol/L N 22-32 Anion Gap 7 mmol/L N 2-11 Glucose 187 mg/dL High 70-100 Blood Urea Nitrogen 15 mg/dL N 6-24 Creatinine 0.72 mg/dL N 0.67-1.17 BUN/Creatinine Ratio 20.8 High 8-20 Calcium 9.0 mg/dL N 8.6-10.3 Egfr Non- 107.9 >60 Egfr 130.6 >60 1 Laboratory test 01/14/2018 [facility] Magnesium 1.8 mg/dL Low 1.9-2.[address] [place] [address] [phone] Laboratory test 06/09/2017 [facility] Point of Care 191 mg/dL High 70-100 [address] [place] [address] [phone] Inr/Protime 06/09/2017 [facility] Inr 1.01 N 0.77-1.[address] [place] [address] [phone] Laboratory test 07/08/2016 [facility] Surgical SEE RESULT [address] [place] [address] [phone] Inr/Protime 07/08/2016 [facility] Inr 0.93 N 0.89-1.[address] [place] [address] [phone] Laboratory test 07/08/2016 [facility] Point of Care 145 mg/dL High 74-106 [address] [place] [address] [phone] Comp Metabolic 07/03/2016 [facility] Sodium 134 mmol/L N 133- [address] [place] [address] [phone] Potassium 4.1 mmol/L N 3.5-5.0 Chloride 100 mmol/L Low 101-111 Co2 Carbon Dioxide 30 mmol/L N 22-32 Anion Gap 4 mmol/L N 2-11 Glucose 130 mg/dL High 70-100 Blood Urea Nitrogen 9 mg/dL N 6-24 Creatinine 0.78 mg/dL N 0.67-1.17 BUN/Creatinine Ratio 11.5 N 8-20 Calcium 9.8 mg/dL N 8.6-10.3 Total Protein 7.2 g/dL N 6.4-8.9 Albumin 4.2 g/dL N 3.2-5.2 Globulin 3.0 g/dL N 2-4 Albumin/Globulin Ratio 1.4 N 1-3 Total Bilirubin 0.60 mg/dL N 0.2-1.0 Alkaline Phosphatase 65 U/L N 34-104 Alt 20 U/L N 7-52 Ast 20 U/L N 13-39 Egfr Non- 98.7 N >60 Egfr 126.9 N >60 6 CBC Auto Diff 07/03/2016 [facility] White Blood 7.3 10^3/uL N 3.5-10.[address] [place] [address] [phone] Red Blood Count 5.17 10^6/uL N 4.0-5.4 Hemoglobin 13.3 g/dL Low 14.0-18.0 Hematocrit 41 % Low 42-52 Mean Corpuscular Volume 79 fL Low 80-94 Mean Corpuscular Hemoglobin 26 pg Low 27-31 Mean Corpuscular HGB Conc 33 g/dL N 31-36 Red Cell Distribution Width 15 % N 10.5-15 Platelet Count 198 10^3/uL N 150-450 Mean Platelet Volume 9 um3 N 7.4-10.4 Abs Neutrophils 4.9 10^3/uL N 1.5-7.7 Abs Lymphocytes 1.5 10^3/uL N 1.0-4.8 Abs Monocytes 0.7 10^3/uL N 0-0.8 Abs Eosinophils 0.2 10^3/uL N 0-0.6 Abs Basophils 0 10^3/uL N 0-0.2 Abs Nucleated RBC 0.01 10^3/uL N Granulocyte % 67.0 % N 38-83 Lymphocyte % 19.9 % Low 25-47 Monocyte % 9.7 % High 1-9 Eosinophil % 3.2 % N 0-6 Basophil % 0.2 % N 0-2 Nucleated Red Blood Cells % 0.1 N CBC Auto Diff 04/24/2016 [facility] White Blood 5.9 10^3/uL N 3.5-10.[address] Count [place] [id number] [phone] Red Blood Count 4.89 10^6/uL N 4.0-5.4 Hemoglobin 13.0 g/dL Low 14.0-18.0 Hematocrit 39 % Low 42-52 Mean Corpuscular Volume 80 fL N 80-94 Mean Corpuscular Hemoglobin 27 pg N 27-31 Mean Corpuscular HGB Conc 33 g/dL N 31-36 Red Cell Distribution Width 15 % N 10.5-15 Platelet Count 159 10^3/uL N 150-450 Mean Platelet Volume 10 um3 N 7.4-10.4 Abs Neutrophils 3.9 10^3/uL N 1.5-7.7 Abs Lymphocytes 1.3 10^3/uL N 1.0-4.8 Abs Monocytes 0.5 10^3/uL N 0-0.8 Abs Eosinophils 0.2 10^3/uL N 0-0.6 Abs Basophils 0 10^3/uL N 0-0.2 Abs Nucleated RBC 0 10^3/uL N Granulocyte % 66.1 % N 38-83 Lymphocyte % 21.8 % Low 25-47 Monocyte % 8.7 % N 1-9 Eosinophil % 2.6 % N 0-6 Basophil % 0.8 % N 0-2 Nucleated Red Blood Cells % 0 N Comp Metabolic Panel 04/24/2016 [facility] Sodium 137 mmol/L N 133-145 [address] [place] [address] [phone] Potassium 3.8 mmol/L N 3.5-5.0 Chloride 103 mmol/L N 101-111 Co2 Carbon Dioxide 29 mmol/L N 22-32 Anion Gap 5 mmol/L N 2-11 Glucose 154 mg/dL High 70-100 Blood Urea Nitrogen 16 mg/dL N 6-24 Creatinine 0.80 mg/dL N 0.67-1.17 BUN/Creatinine Ratio 20.0 N 8-20 Calcium 9.1 mg/dL N 8.6-10.3 Total Protein 6.9 g/dL N 6.4-8.9 Albumin 4.2 g/dL N 3.2-5.2 Globulin 2.7 g/dL N 2-4 Albumin/Globulin Ratio 1.6 N 1-3 Total Bilirubin 0.80 mg/dL N 0.2-1.0 Alkaline Phosphatase 60 U/L N 34-104 Alt 23 U/L N 7-52 Ast 20 U/L N 13-39 Egfr Non- 95.8 N >60 Egfr 123.3 N >60 7 Basic Metabolic Panel 05/30/2014 [facility] Sodium 137 mmol/L N 133-145 [address] [place] [address] [phone] Potassium 4.1 mmol/L N 3.5-5.0 Chloride 104 mmol/L N 101-111 Co2 Carbon Dioxide 28 mmol/L N 22-32 Anion Gap 5 mmol/L N 2-11 Glucose 114 mg/dL High 70-100 Blood Urea Nitrogen 15 mg/dL N 6-24 Creatinine 0.75 mg/dL N 0.67-1.17 BUN/Creatinine Ratio 20.0 N 8-20 Calcium 9.6 mg/dL N 8.6-10.3 Egfr Non- 103.9 N >60 Egfr 133.6 N >60 8 Laboratory test 05/30/2014 [facility] Magnesium 1.9 mg/dL N 1.9-2.7 finding [address] [place] [address] [phone] Basic Metabolic 05/06/2014 Sodium 137 mmol/L N 133-145 Panel Potassium 4.1 mmol/L N 3.5-5.0 Chloride 102 mmol/L N 101-111 Co2 Carbon Dioxide 29 mmol/L N 22-32 Anion Gap 6 mmol/L N 2-11 Glucose 131 mg/dL High 70-100 Blood Urea Nitrogen 18 mg/dL N 6-24 Creatinine 0.85 mg/dL N 0.67-1.17 BUN/Creatinine Ratio 21.2 High 8-20 Calcium 9.3 mg/dL N 8.6-10.3 Egfr Non- 89.9 N >60 Egfr 115.6 N >60 9 Laboratory test 05/06/2014 Magnesium 2.0 mg/dL N 1.9-2.7 finding Laboratory test 12/31/2013 [facility] Ferritin 10.4 ng/mL Low 24-336 finding [address] [place] [address] [phone] Vitamin B12 533 pg/mL N 180-914 10 Haptoglobin 209 mg/dL Abnormal 30 - 200 11 Iron & Iron Binding 12/31/2013 [facility] Iron 36 g/dL Low 50-212 Capacity [address] [place] [address] [phone] Unsaturated Iron Binding 398 g/dL N Total Iron Binding Capacity 434 g/dL N 250-450 % Iron Saturation 8 % Low 15-55 Laboratory test 12/31/2013 [facility] LDH 125 U/L Low 140-[address] [place] [phone] Basic Metabolic 12/31/2013 [facility] Sodium 135 mmol/L N 133- 145 Panel [address] [place] [address] [phone] Potassium 4.2 mmol/L N 3.7-5.6 Chloride 103 mmol/L N 101-111 Co2 Carbon Dioxide 26 mmol/L N 22-32 Anion Gap 6 mmol/L N 2-11 Glucose 145 mg/dL High 70-100 Blood Urea Nitrogen 15 mg/dL N 6-24 Creatinine 0.73 mg/dL N 0.67-1.17 BUN/Creatinine Ratio 20.5 High 8-20 Calcium 8.9 mg/dL N 8.6-10.3 Egfr Non- 107.5 N >60 Egfr 138.2 N >60 12 CBC No Diff 12/31/2013 [facility] White Blood 6.7 10^3/uL N 4.8-10.[address] [place] [address] [phone] Red Blood Count 5.01 10^6/uL N 4.0-5.4 Hemoglobin 12.4 g/dL Low 14.0-18.0 Hematocrit 38 % Low 42-52 Mean Corpuscular Volume 76 fL Low 80-94 Mean Corpuscular Hemoglobin 25 pg Low 27-31 Mean Corpuscular HGB Conc 33 g/dL N 31-36 Red Cell Distribution Width 18 % High 10.5-15 Platelet Count 217 10^3/uL N 150-450 Mean Platelet Volume 8 um3 N 7.4-10.4 Order 12/10/2013 [facility] Stress Test, <pending> [address] [place] [address] Echocardiogram [phone] Surgical 12/14/2012 [facility] S RUN DATE: [address] <[place] [address] NOTE> [phone] 1 Because ethnic data is not always readily [...] 15-29 5 Kidney failure <15 (or dialysis) 2 Flame Annealing Machine Setter: [id number] 3 SEE RESULT BELOW Name: MILAGROS HUNTLEY JR : [address]: Gregg Traore MD Acct: [id number] Unit: [id number] AGE: 71 Location: OR Re07/08/16 SEX: M Status: LINN SD SPEC: [id number] DERIAN: 07/08/16- SUBM DR: Gregg Traore MD REQ: [id number] RECD: 07/08/16 STATUS: SOUT _ ORDERED: LEVEL [...] and the wall thickness averages 0.1 cm. Arch Cushion Skiving Machine Operator sections, one cassette. Signed (signature on file) Jose Manuel Sotelo MD 1006 END OF REPORT * ML=Testing performed at Main Lab DEPARTMENT OF PATHOLOGY, [address] [place] [address] Jose Manuel Sotelo M.D. Director [facility] # [id number] 4 Comment: On arrival to Same Day surgery--pre-op, pt on coum 5 Flame Annealing Machine Setter: [id number] HAWA THACKER 6 Because ethnic data is not always [...] 5 Kidney failure <15 (or dialysis) 9 Because ethnic data is not always readily [...] 15-29 5 Kidney failure <15 (or dialysis) 10 Normal Range 180 to 914 Indeterminate Range 145 to 180 Deficient Range <145 11 Test Performed by: [address] [address] [place]olphin Researcher: Ralph Multani III, M.D. 12 Because ethnic data is not always readily [...] 15-29 5 Kidney failure <15 (or dialysis) 13 RUN DATE: 12/16/12 [facility] LAB LIVE PAGE 1 RUN TIME: 0298 [address] [facility], [place], [place] [address] Specimen Inquiry Name: MILAGROS HUNTLEY JR : [address]: Ankit Petit MD Acct: [id number] Unit: [id number] AGE: 67 Location: OR Re12/14/12 SEX: M Status: REG [facility] [place] [place] SPEC: [id number] DERIAN: 12/14/12- [facility] DR: Ankit Petit MD REQ: [id number] RECD: 12/14/12 STATUS: SOUT _ ORDERED: LEVEL [...] aggregate of yellow and white tissue fragments. Arch Cushion Skiving Machine Operator sections, one cassette. Signed (signature on file) Jose Manuel Sotelo MD 1534 END OF REPORT * ML=Testing performed at Main Lab DEPARTMENT OF PATHOLOGY, [address] [place] [address] Jose Manuel Sotelo M.D. Director [facility] Permit #[id number] Procedures Date Code Description Status 02/12/2018 39977 Inject/Drain Joint/Bursa Major W/O US Completed 12/10/2017 85729 EKG Tracing & Interpretation Completed 06/09/2017 69303 Implant For Incisional/Ventral Hernia Repair Completed 06/09/2017 19533 Implant For Incisional/Ventral Hernia Repair Completed 06/09/2017 82220 Repair Hernia Incisional/Ventral Initial, Reducible Completed 06/09/2017 86978 Repair Hernia Incisional/Ventral Initial, Reducible Completed 05/01/2017 65395 EKG Tracing & Interpretation Completed 12/16/2016 70323 Treadmill Interp/Report Only Completed 12/16/2016 78338 Stress Test Supervsn W/Out I/R Completed 12/16/2016 57459 EKG, Interpretation Only Completed 07/24/2016 03881 Color Flow Doppler/Interp & Reprt Completed 07/24/2016 51309 Pulse Wave/Continuous-Interp.RPT Completed 07/24/2016 31659 Echocardiography, Transesophageal, Real Time W/Image 2D Completed W/W/O M-M 07/10/2016 41890 Event Monitor/Phys Review/Interp. Completed 07/08/2016 44199 Laparoscopy Cholecystectomy Completed 07/08/2016 80282 Laparoscopy Cholecystectomy Completed 07/02/2016 66238 EKG Tracing & Interpretation Completed 11/21/2015 92360 EKG Tracing & Interpretation Completed 04/03/2015 24771 ECHO Transthoracic, Real-Time 2D With Doppler And Color Completed Flow 03/06/2015 77570 EKG Tracing & Interpretation Completed 11/18/2014 38392 Stress Test Completed 11/18/2014 35353 Myocardial Perfusion Imaging Tomographic (Spect) Completed Multiple Studies 11/18/2014 15208 Myocardial Perfusion Imaging Tomographic (Spect) Completed Multiple Studies 11/16/2014 24387 ECHO Transthoracic, Real-Time 2D With Doppler And Color Completed Flow 11/15/2014 77878 Holter Monitoring 24 HR New Completed 11/14/2014 90444 Holter Monitoring 24 HR New Completed 09/12/2014 15778 Inject/Drain Joint/Bursa Major W/O US Completed 08/02/2014 35993 EKG Tracing & Interpretation Completed 05/26/2014 91594 ECG Monitor/Recording W/Visual Superimposition Scanning Completed 05/26/2014 91850 Holter Monitor Review (24 hr)dr review & interp only Completed 05/02/2014 98471 EKG Tracing & Interpretation Completed 02/08/2014 20716 EKG Tracing & Interpretation Completed 01/30/2014 51488 ECHO Transthorasic Realtime 2D W Doppler & Color Flow Completed Hosp 01/30/2014 78671 EKG, Interpretation Only Completed 01/26/2014 09330 EKG, Interpretation Only Completed 01/26/2014 39766 Cardioversion Completed 01/25/2014 [id number] Colonoscopy Completed 01/12/2014 31566 EKG Tracing & Interpretation Completed 12/31/2013 95923 EKG, Interpretation Only Completed 12/31/2013 39368 Cardioversion Completed 12/30/2013 20163 EKG Tracing & Interpretation Completed 12/10/2013 21720 Treadmill Interp/Report Only Completed 12/10/2013 44822 Stress Test Supervsn W/Out I/R Completed 12/08/2013 06293 Cardioversion Completed 12/08/2013 43876 EKG, Interpretation Only Completed 12/08/2013 99691 Echocardiography, Transesophageal, Real Time W/Image 2D Completed W/W/O M-M 12/08/2013 87080 Pulse Wave/Continuous-Interp.RPT Completed 12/08/2013 65743 Color Flow Doppler/Interp & Reprt Completed 11/03/2013 41651 EKG, Interpretation Only Completed 11/01/2013 66730 ECHO Transthoracic, Real-Time 2D With Doppler And Color Completed Flow 10/12/2013 82813 EKG Tracing & Interpretation Completed 04/30/2013 08154 Inject/Drain Joint/Bursa Major W/O US Completed 12/14/2012 58568 Arthroscopy,Knee,Meniscectomy Media & Lateral Completed 12/14/2012 51716 Arthroscopy,Knee,Meniscectomy Media & Lateral Completed 07/09/2012 90667 Xray Knee 3 Views Completed 07/09/2012 51830 Rad Exam; Knee, Ap&L Completed 04/15/2005 29247 Color Doppler Completed 04/15/2005 81189 Pulse Doppler & Continuous Wave Completed 04/15/2005 86542 Echocardiogram Completed Encounters Type Date Location Provider Dx Diagnosis Office Visit 03/26/2018 Orthopedic Dario Lynch MD M75.121 Complete 8:15a [facility] Of [facility] rotatr-cuff tear/ruptr of r shoulder, not trauma M19.011 Primary osteoarthritis, right shoulder Office Visit 02/12/2018 Orthopedic Dario Lynch M19.011 Primary 11:00a Services Of osteoarthritis, C.M.AThelma right shoulder M75.121 Complete rotatr-cuff tear/ruptr of r shoulder, not trauma Office Visit 12/10/2017 [place] Sarah S. I48.0 Paroxysmal atrial 4:00p Cardiology Bennie Ahmadi fibrillation Z79.01 care home (current) use of anticoagulants I34.0 Nonrheumatic mitral (valve) insufficiency I36.1 Nonrheumatic tricuspid (valve) insufficiency E66.9 Obesity, unspecified Office Visit 05/13/2017 Surgical Gregg S. K43.2 Incisional hernia 9:45a [facility] [place] without Labor/Excavator obstruction or gangrene Office Visit 05/01/2017 [place] Sarah S. 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 I48.0 Paroxysmal atrial 10:00a Vikas Ahmadi M.D. 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 I48.0 Paroxysmal atrial 3:00p Vikas Ahmadi M.D. fibrillation I10 Essential (primary) hypertension E66.9 Obesity, unspecified I34.0 Nonrheumatic mitral (valve) insufficiency Office Visit 01/31/2016 Surgical Gregg Pack K80.20 Calculus of 1:30p [facility] [place] gallbladder w/o Labor/Excavator cholecystitis w/o obstruction R10.30 Lower abdominal pain, unspecified R19.7 Diarrhea, unspecified Office Visit 11/21/2015 [place] Qukadi S. I48.91 Unspecified atrial 10:00a Vikas Ahmadi M.D. fibrillation I10 Essential (primary) hypertension E66.9 Obesity, unspecified I34.0 Nonrheumatic mitral (valve) insufficiency I36.1 Nonrheumatic tricuspid (valve) insufficiency R94.31 Abnormal electrocardiogram [ECG] [EKG] Office Visit 04/18/2015 9:00a [facility] Janeth Nolasco, I48.0 Paroxysmal atrial PA fibrillation I10 Essential (primary) hypertension E66.9 Obesity, unspecified E66.09 Other obesity due to excess calories Office Visit 03/06/2015 9:00a [facility] Sarah S. I10 Essential Bennie Ahmadi (primary) hypertension E66.9 Obesity, unspecified R53.83 Other fatigue R06.02 Shortness of breath I48.0 Paroxysmal atrial fibrillation Office Visit 02/23/2015 2:01p [facility] Kaur K56.69 Other intestinal Assoc,Erich MilesD. obstruction Hospitalists E11.9 Type 2 diabetes mellitus without complications Office Visit 02/22/2015 2:00p [facility] Kaur K56.69 Other intestinal Assocyoon M.D. obstruction Hospitalists E11.9 Type 2 diabetes mellitus without complications Office Visit 02/21/2015 [facility] Miko Shore K56.69 Other intestinal 1:59p Assocyoon II, M.D. obstruction Hospitalists E11.9 Type 2 diabetes mellitus without complications Office Visit 12/14/2014 10:00a [place] [facility] Janeth Nolasco, 401.9 Hypertension Unspec PA 278.00 Obesity Unspec 780.8 Generalized Hyperhidrosis 250.00 Diabetes Mellitus W/O Compl Type II Or Unspec Controlled 427.31 Atrial Fibrillation Office Visit 11/28/2014 9:30a [place] [facility] DANIEL Newman 780.79 Malaise And Of [facility] Fatigue Other 427.31 Atrial Fibrillation 401.9 Hypertension Unspec 250.00 Diabetes Mellitus W/O Compl Type II Or Unspec Controlled 278.00 Obesity Unspec Office Visit 11/14/2014 11:00a [place] [facility] DANIEL Newman 413.9 Angina Pectoris Of [facility] Other Unspec 401.9 Hypertension Unspec 250.00 Diabetes Mellitus W/O Compl Type II Or Unspec Controlled 427.31 Atrial Fibrillation 278.00 Obesity Unspec Office Visit 09/27/2014 9:40a Neurosurgery Mika JThelma 847.0 Sprains & Services Of Etienne Fan M.D. Strains Neck 723.4 Brachial Neuritis Or Radiculitis NOS Office Visit 09/26/2014 8:30a Orthopedic Mikey Villagomez 715.11 Osteoarthrosis Services Of Bennie Salazar Localized Prim C.M.A. 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 Shoulder Region 719.41 Pain Joint Shoulder Region 726.10 Bursae & Tendon Disorders Shoulder Region Unspec 726.19 Shoulder Disorders Other Spec 840.4 Sprains & Strains Rotator Cuff (Capsule) 723.1 Cervicalgia 847.0 Sprains & Strains Neck 722.91 Disc Disorder Other & Unspec Cervical Region Office Visit 08/02/2014 8:30a [facility] Janeth Nolasco, 401.9 Hypertension Unspec PA 424.1 Aortic Valve Disorder 427.31 Atrial Fibrillation 250.00 Diabetes Mellitus W/O Compl Type II Or Unspec Controlled 278.00 Obesity Unspec Office Visit 05/02/2014 [place] Sarah S. 427.31 Atrial 3:20p Cardiology Bennie Ahmadi Fibrillation 424.1 Aortic Valve Disorder 401.9 Hypertension Unspec 794.31 Electrocardiogram (ECG) (EKG) Abnormal Office Visit 02/08/2014 [place] Sarah SThelma 427.31 Atrial 2:00p Cardiology Bennie Ahmadi Fibrillation 424.1 Aortic Valve Disorder 794.31 Electrocardiogram (ECG) (EKG) Abnormal 401.9 Hypertension Unspec Office Visit 01/31/2014 11:09a [facility] Kendall Pulido 423.9 Pericardium Assoc,yoon Estes, Unspec Diseases Hospitalists Bennie 427.31 Atrial Fibrillation 514 Pulmonary Congestion & Hypostasis 250.40 Diabetes W/ Renal Manifestations Type II Controlled Office Visit 01/30/2014 11:08a [facility] Kendall Pulido 423.9 Pericardium Assoc,pc Rona Cruz, Unspec Diseases Hospitalists Bennie 427.31 Atrial Fibrillation 514 Pulmonary Congestion & Hypostasis 250.40 Diabetes W/ Renal Manifestations Type II Controlled Office Visit 01/30/2014 10:05a [place] [facility] Jose M Santana 427.31 Atrial Of Etienne Sotelo M.D., Fibrillation FACC, FASNC 786.50 Pain Chest Unspec Office Visit 01/29/2014 11:08a [facility] Kendall Pulido 423.9 Pericardium Assoc,pc Rona Cruz, Unspec Diseases Hospitalists Bennie 427.31 Atrial Fibrillation 514 Pulmonary Congestion & Hypostasis 250.40 Diabetes W/ Renal Manifestations Type II Controlled Office Visit 01/26/2014 [place] Avileseh S. 427.31 Atrial 8:00a Vikas Ahmadi M.D. Fibrillation Office Visit 01/12/2014 [place] Tiptonybeh S. 427.31 Atrial 3:00p Vikas Ahmadi M.D. Fibrillation 401.9 Hypertension Unspec 785.0 Tachycardia Unspec 250.00 Diabetes Mellitus W/O Compl Type II Or Unspec Controlled Office Visit 12/31/2013 [place] Tiptonybeh S. 427.31 Atrial 11:00a Vikas Ahmadi M.D. Fibrillation 427.31 Atrial Fibrillation Office Visit 12/30/2013 [place] Steelcandelariacammike S. 401.9 Hypertension 4:20p Vikas Ahmadi M.D. Unspec 785.0 Tachycardia Unspec 794.31 Electrocardiogram (ECG) (EKG) Abnormal Office Visit 12/10/2013 [place] Franck Riggins 427.31 Atrial 3:39p Assoc,yoon Lester M.D. Fibrillation Hospitalists 786.59 Pain Chest Other 401.9 Hypertension Unspec 250.00 Diabetes Mellitus W/O Compl Type II Or Unspec Controlled Office Visit 12/09/2013 3:38p [facility] Gilson Lester, 786.59 Pain Chest Assocyoon M.D. Other Hospitalists 427.31 Atrial Fibrillation 401.9 Hypertension Unspec 250.00 Diabetes Mellitus W/O Compl Type II Or Unspec Controlled Office Visit 12/08/2013 [place] Smith S. 427.31 Atrial 8:00a Vikas Ahmadi M.D. Fibrillation 785.0 Tachycardia Unspec Office Visit 11/05/2013 11:23a [facility] Shane Quintana.9 Intestinal Assocyoon M.D. 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.0 Spondylitis Ankylosing Office Visit 11/04/2013 11:22a [facility] Shane Quintana.Glenny Intestinal Assocyoon M.D. 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 RThelmaP.A.-C Cuff (Capsule) 726.10 Bursae & Tendon Disorders Shoulder Region Unspec Office Visit 04/02/2013 1:00p Orthopedic Ankit Petit, 840.4 Sprains & Strains Services Of M.D. Rotator Cuff C.M.A. (Capsule) Office Visit 11/26/2012 9:00a Orthopedic Ankit Petit, 836.0 Dislocation Knee Services Of M.D. Tear Of Medial C.M.A. Cartilage Or Meniscus Curren 715.96 Osteoarthrosis Unspec Genlzd Or Localized Lower Leg Office Visit 07/09/2012 11:00a Orthopedic Ankit Petit, 836.0 Dislocation Knee Services Of M.D. Tear Of Medial C.M.A. Cartilage Or Meniscus Curren 715.96 Osteoarthrosis Unspec Genlzd Or Localized Lower Leg Plan of Treatment Future Appointment(s):05/26/2018 1:15 pm - Dario Lynch MD at [facility]05/13/2018 7:30 am - Alanna Barreto PA-C at [facility]05/13/2018 7:30 am - Dario Lynch MD at [facility]05/05/2018 - Dario Lynch, MDM75.121 Complete rotator cuff tear or rupture of right shoulder, notFollow up:Follow up: 10-14 days post opM19.011 Primary osteoarthritis, right shoulder
[2018-05-13] MEDS ORDERED: Insulin REGULAR(*) 1 UNITS UNIT ONE ×2 (10:10→12:24)
[2018-05-13 10:37] LABS: INR 1.07 (0.77-1.02)
[2018-05-13] MEDS ORDERED: Ropivacaine* 2 MG/ML 20 ML VIAL (0.2%) ONE (11:16)
[2018-05-13] MEDS ORDERED: Succinylcholine* 20 MG/ML 10 ML VIAL ONE (12:03)
[2018-05-13] MEDS ORDERED: Propofol* 10 MG/ML 20 ML BTL ONE (12:03)
[2018-05-13] MEDS ORDERED: Ketorolac INJ* 30 MG/ML 1 ML VIAL ONE (12:04)
[2018-05-13] MEDS ORDERED: PROCHLORPERAZINE INJ 5 MG/ML 2 ML VIAL ONE (12:04)
[2018-05-13] MEDS ORDERED: hydrALAZINE IV* 20 MG/ML VIAL ONE (12:45)
[2018-05-13] MEDS ORDERED: Glycopyrrolate IV* 0.2 MG/ML 1 ML VIAL ONE (13:41)
[2018-05-13] MEDS ORDERED: Neostigmine Methylsulfate* 1 MG/ML 10 ML VIAL (1 mg/ml) ONE (13:41)
[2018-05-13] MEDS ORDERED: Metoprolol Tartrate IV* 1 MG/ML 5 ML VIAL ONE (13:51)
[2018-05-13] MEDS ORDERED: oxyCODONE/Acetamin 5/325 MG* TAB PO PRN (14:17)
[2018-05-13] MEDS ORDERED: Cyclobenzaprine TAB* 10 MG PO PRN (14:17)
[2018-05-13] MEDS ORDERED: Ondansetron INJ* 2 MG/ML VIAL IV PRN (14:17)
[2018-05-13] MEDS ORDERED: Bisacodyl SUPP* 10 MG SUPP PR PRN (14:17)
[2018-05-13] MEDS ORDERED: Temazepam CAP* 15 MG PO PRN (14:17)
[2018-05-13] MEDS ORDERED: Magnesium Hydroxide LIQ* 30 ML UDC PO PRN (14:17)
[2018-05-13] MEDS ORDERED: Polyethylene Glycol 3350* 17 GM PACKET PO PRN (14:17)
[2018-05-13] MEDS ORDERED: traMADol TAB* 50 MG PO PRN (14:17)
[2018-05-13] MEDS ORDERED: diPHENhydraMINE PO* 25 MG PO PRN (14:17)
[2018-05-13] MEDS ORDERED: diPHENhydraMINE IV* 50 MG/ML 1 ml VIAL (BENADRYL) IV PRN (14:17)
[2018-05-13] MEDS ORDERED: Ondansetron ODT TAB* 4 MG PO PRN (14:17)
[2018-05-13] MEDS ORDERED: Zolpidem TAB* 10 MG PO PRN (14:29)
[2018-05-13] MEDS ORDERED: Dextrose 50% Syringe 50 ML* 25 GM/50 ML SYRINGE IV PUSH PRN (15:27)
[2018-05-13] MEDS ORDERED: Insulin LISPRO* 1 UNITS UNIT SUBCUT ONE (15:44)
[2018-05-13] MEDS: Lactated Ringers 1000 ML Bag* 1,000 ML IV SCH (16:20)
--- NOTE | 2018-05-13 16:21 | OP ---
CC: PCP, Dr. Patel * DATE OF OPERATION: 05/13/18 - ROOM #352 DATE OF : 49 SURGEON: Dario Lynch MD ASSISTANTS: DANIEL Hester and Vianca Lunsford. Assistants were needed for the entirety of the case to help with positioning, retraction, and utilized throughout all portions of the case. ANESTHESIOLOGIST: Dr. Strauss. ANESTHESIA: General with interscalene block. PRE-OP DIAGNOSIS: Right shoulder rotator cuff arthropathy. POST-OP DIAGNOSIS: Right shoulder rotator cuff arthropathy. OPERATIVE PROCEDURE: Right shoulder reverse shoulder arthroplasty and open biceps tenodesis. INDICATIONS: Dnaie Huntley is a 73-year-old male with persistent right shoulder pain with deformity. He has known rotator cuff arthropathy. After extensive discussion of the risks and benefits of surgery, he has elected to proceed with surgical treatment. Risks and benefits were discussed at length and included, but are not limited to bleeding, infection; damage to nerves, vessels, surrounding structures; wound nonhealing, persistent pain, need for further surgery, scarring, stiffness, incomplete relief of symptoms, risks of anesthesia. COMPLICATIONS: None. ESTIMATED BLOOD LOSS: 250 cc. OUTPUT: Drain x1. IMPLANTS: Tornier Aequalis Reversed II Centered glenosphere with a 36 mm centered head, size 3B Ascend Flex humeral stem with a centered baseplate of +6 poly, 25 x 40 mm centered glenoid baseplate. DESCRIPTION OF PROCEDURE: The patient was greeted in the preoperative area by the attending surgeon. Correct extremity was marked and consent was confirmed. He underwent interscalene nerve block by the anesthesiologist, after which he was brought back to the operating suite where he was placed in supine position on the operating table. He then underwent general anesthesia and endotracheal intubation. The patient was then placed in a lazy-beach chair position. All bony prominences were padded. He was secured to the bed. The right shoulder was then prepped and draped in the usual sterile fashion beginning with chlorhexidine soap, scrub, and alcohol wipe and a final prep with ChloraPrep. After appropriate surgical pause indicating side, site, procedure, and administration of antibiotics, the deltopectoral incision was then made using a 15- blade. The soft tissues were carefully dissected to expose the deltopectoral interval, which was identified. Cephalic vein was taken laterally with the deltoid. Soft tissues were carefully dissected to expose the clavipectoral fascia. Once it was identified and the coracoid process was identified, the CA ligament was then released. The lateral aspect of the short head of the biceps was also released and freed. The subscap was freed of adhesions anteriorly. The pec was identified and proximal 1 cm of the pec was then released. The biceps was then identified and tenodesed using a heavy nonabsorbable suture. It was then tenotomized proximal to that, it was followed to the joint. The humeral circumflex vessels were identified and then suture ligated. The dissection was taken into the joint. The subscap was identified. It was then released. There was evidence of full- thickness retracted tear of the supraspinatus. Subscap was released in a subscap- peel fashion and tagged with a #5 Ethibond suture for retraction. The joint was then gently dislocated to expose the humeral head, which had grade 4 changes to it. At this point, the cutting guide was then used to angela a provisional cut and the sagittal saw was then used to cut the humeral head. After this, the canal finder was then used to find the canal as well as the sounder. Then, broaching began beginning with a 0 broach to 3 view broach. It was found to have good metaphyseal purchase. At this point, the protection plate was then placed for protection and attention was directed to the glenoid. The humerus was brought back into the shoulder and attention was directed to the glenoid. Posterior retractors as well as sudhakar were placed posteriorly and Hohmann was placed superiorly to the glenoid. The subscap had significant adhesions to the capsules as well as the glenohumeral ligament. These were then carefully released with care to preserve the neurovascular structures. The subscap was then carefully mobilized and once this was done, the anterior glenohumeral neck retractor was then placed. The labrum was then released beginning superiorly including the biceps and then labrum was released to the 5 o'clock position and then attention was directed inferiorly with tension on the sutures and care to prevent damage to the neurovascular structures. The inferior labrum was released very carefully to expose the entire glenoid. The posterior labrum was also released. Once this was done, there was some cartilage that still remained on the glenoid surface. This was then carefully removed with the curette. The drill sleeve was then centered in the inferior portion of the glenoid. The guide pin was then drilled. A size 25-mm reamer was then used to ream the glenoid. The footprint reamer was then done by hand. The cannulated drill bit was then placed. The bone was very hard in quality, so drilling began sequentially so as to prevent any damage or fracture to the glenoid. The bone quality again was quite hard. Once it was drilled to a depth of about 40 mm, the drill hole was then tapped and then the final implant was placed with excellent purchase in the glenoid. Four interlocking screws were then placed with excellent purchase. The glenosphere was then impacted into position and secured with a set screw. Attention was then directed to the head. The head was brought back through the wound. The stem was checked to make sure it had not been loosened. The centered tray was then placed with +6 poly. The shoulder was then reduced and taken through range of motion, external rotation to about 45, forward flexion to about 150, abduction to 90 with appropriate shuck. It was difficult to dislocate. It had an appropriate suction fit. At this point, the final implants were chosen. The transosseous tunnels were then drilled for later subscap closure. A #5 Ethibond suture was then passed for later subscap closure. The final implant was prepared on the back table by the attending surgeon. The final implant was impacted with good position and good fit and then reduced. The shoulder was taken through range of motion and found to be symmetric. The wounds were copiously irrigated with sterile saline. The subscap was closed in a horizontal mattress fashion and the wound was irrigated again. An intraarticular drain was then placed. The wound was irrigated again and the deltopectoral interval was closed with #2 Ethibond sutures, the skin with 3-0 Monocryl, both for subcuticular and skin. Sterile dressings were applied. Cryo/Cuff and UltraSling were applied. He was awoken from anesthesia and transferred to the PACU in stable condition. POSTOPERATIVE PLAN: He will be admitted overnight and received 24 hours of antibiotics. He will be on Lovenox while in-house, discharged on pain medication. DVT prophylaxis will be Lovenox while he is in-house and discharged on nothing due to no family history or personal history. I will see the patient back in 10 to 14 days with x-rays. [id number]/[facility] #: [id number] CELESTE
--- NOTE | 2018-05-13 17:03 | CONS ---
CC: Dr. Marc Patel; Dr. Dario Lynch * CONSULTATION REPORT: DATE OF CONSULT: 05/13/18 PRIMARY CARE PROVIDER: Dr. Marc Patel. MY ATTENDING WHILE IN THE HOSPITAL: Dr. Miko Perkins. CONSULTING PROVIDER: Dr. Dario Lynch. REASON FOR CONSULT: Co-management of comorbid medical conditions. HISTORY OF PRESENT ILLNESS: Mr. Huntley is a 73-year-old male with past medical history significant for AFib, obstructive sleep apnea, hypertension, type 2 diabetes, who today underwent reverse right total shoulder surgery. The patient was examined postoperatively, has minimal pain. Has no chest pain, shortness of breath, palpitations, dizziness. The patient has no abdominal pain. The patient has no recent illnesses, no sick contacts. No fevers or chills. No dysuria. No abdominal pain or diarrhea. The patient checks his blood sugars daily and usually they are between 190 and 200. The patient takes only metformin at 1000 mg twice daily and has not taken that this morning. The patient has not had any issues with atrial fibrillation recently. The patient had INR drawn this morning, which was 1.07. He has not taken his warfarin in 4 days. The patient took his Cardizem this morning. The patient's blood sugar in the postoperative area was 291. PAST MEDICAL HISTORY: AFib, hypertension, osteoarthritis, CITLALY, diabetes mellitus type 2, anemia, GERD, BPH. PAST SURGICAL HISTORY: Right shoulder rotator cuff repair, left total knee arthroplasty, TURP, hernia repair, cardiac ablation. MEDICATIONS: 1. Magnesium 400 mg p.o. daily. 2. Klor-Con 20 mEq p.o. daily. 3. Cardizem 120 mg p.o. daily. 4. Pantoprazole 40 mg p.o. twice daily. 5. Metformin 1000 mg p.o. twice daily. 6. Multivitamin 1 tab p.o. daily. 7. Tikosyn 500 mcg p.o. twice a day. 8. Eszopiclone 3 mg p.o. at bedtime. 9. Benadryl 25 mg p.o. in the evening. 10. Warfarin 7.5 mg p.o. daily. 11. Pramipexole 0.125 mg by mouth 2 hours prior to bedtime. ALLERGIES: MORPHINE. FAMILY HISTORY: The patient's father had COPD. The patient's mother had diabetes. The patient's brother has ankylosing spondylitis. 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 The patient is and has 4 children. The patient denies tobacco or alcohol abuse. The patient denies illicit drug use. The patient's surrogate decision maker will be his , Karyn Huntley. REVIEW OF SYSTEMS: A 14-point review of systems was reviewed and is negative except as above in the HPI. PHYSICAL EXAM: General: The patient is a 73-year-old male, who appears stated age and sitting comfortably in bed, in no acute distress. Vital Signs: Temperature 98.6, pulse rate 77, respiratory rate 23, oxygen saturation 94% on 3 L, blood pressure 112/63. HEENT: Head: Normocephalic, atraumatic. Sclerae anicteric. No conjunctival injection. Nasal mucosa moist. Oral mucosa moist. No oropharyngeal erythema, discharge, or exudate. Neck: Supple, nontender. No lymphadenopathy. No carotid bruits auscultated. No JVD. Cardiac: Regular rate and rhythm. No clicks, murmurs, gallops, or rubs. Pulses are 2+ in the bilateral dorsalis pedis, posterior tibialis, and radial areas. Neurovascularly intact distally to the surgery. Respiratory: Clear to auscultation bilaterally. No wheezes, rales, or rhonchi. Good air exchange bilaterally. Abdomen: Soft, nontender, nondistended. Bowel sounds present and normoactive in all 4 quadrants. No hepatosplenomegaly. No abdominal bruits auscultated. No hepatojugular reflux. Genitourinary: No suprapubic or CVA tenderness. Skin: Clean, dry, and intact. No rash. Right shoulder covered in bulky dressing and ice pack. Neurovascular testing intact distally. Neuro: Cranial nerves II through XII intact. No focal deficits. Alert and oriented x3. Psychiatric: Pleasant and cooperative. LABORATORY DATA: INR 1.07 preoperatively, PTT 35.8 preoperatively. ASSESSMENT AND PLAN/IMPRESSION: Mr. Huntley is a 73-year-old male with past medical history significant for atrial fibrillation, hypertension, obstructive sleep apnea and diabetes mellitus, who is status post right total shoulder reverse and is doing well. 1. Status post right total shoulder reverse. Management per Orthopedics. The patient had a large EBL. The patient's hemoglobin and hematocrit will be watched as well as his INR. The patient will be bridged with Coumadin with Lovenox. The patient is rhythm controlled. The patient's Coumadin may be held if there is concern for ongoing bleeding. The patient has mild underlying anemia. The patient will have daily hemoglobin and hematocrit. The patient should have a bowel regimen. Engage in physical therapy and occupational therapy. The patient should have pain control. 2. Atrial fibrillation. The patient is rate controlled. Continue the patient' s Tikosyn twice daily, first dose tonight. The patient took his dose this morning. Continue Cardizem for rate control and in case the patient converts into atrial fibrillation. The patient will be monitored on telemetry. 3. Diabetes mellitus type 2. The patient will be started on insulin sliding scale. The patient will be given 6 units of insulin now. The patient will be transitioned back to metformin at home. 4. Obstructive sleep apnea. The patient will have his CPAP at 12 cm of water as at home. 5. Benign prostatic hypertrophy. The patient will be watched for urinary retention after his Xavier is removed. 6. Hypertension. The patient's Cardizem will be continued. The patient's blood pressure will be watched closely for postoperative hypotension. 7. DVT prophylaxis: The patient will have Lovenox to warfarin bridge for his atrial fibrillation. 8. FEN: The patient will have fluids until he is able to tolerate oral intake. 9. Code status: The patient would like to be a full code. 10. Disposition: Per Orthopedics. TIME SPENT: Approximately 60 minutes was spent on this consultation, 30 of which was spent [id number] with the patient obtaining history and physical and discussing the treatment plan. Plan was discussed with my attending, Dr. Miko Perkins, and he is in agreement. DANIEL LAU [id number]/CPS #: [id number] CELE[facility]
[2018-05-13] MEDS: Acetaminophen TAB* 325 MG PO SCH (18:44)
[2018-05-13] MEDS: Insulin LISPRO* 1 UNITS UNIT SUBCUT SCH ×2 (18:45→21:34)
[2018-05-13] MEDS: oxyCODONE TAB* 5 MG TAB PO PRN (19:39)
[2018-05-13] MEDS: ceFAZolin 1 GM ADVAN(*) 1 GM in NS 0.9% 50 ML* 50 ML IVPB SCH (19:43)
--- NOTE | 2018-05-13 20:41 | PN ---
Progress Note - Progress Note Date of Service: 05/13/18 Note: Pt seen at 4:15 pm Pt seen and examined. Lying comfortably in bed. Denies any pain. Mild numbness and tingling in thumb and index finger. No SOB or CP Temp Pulse Resp BP Pulse Ox 97.8 F 78 16 119/69 98 05/13/18 18:01 05/13/18 18:01 05/13/18 19:47 05/13/18 18:01 05/13/18 18:01 NAD. sling and dressing in place. able to flex/ext digits. block still in effect. brisk cap refill xrays reviewed and acceptable A/P POD#0 from R shoulder reverse NWB PROM with PT tomorrow of shoulder active elbow, hand, wrist ROM elbow to be visible to pt at all time. no posterior extension with IR 24 hours post op abx dvt ppx while in house potential d/c tomorrow medicine consult obtained for DM management
[2018-05-13] MEDS: Dofetilide CAP* 500 MCG PO SCH (21:33)
[2018-05-13] MEDS: Docusate CAP* 100 MG PO SCH (21:33)
[2018-05-13] MEDS: Pantoprazole TAB * 40 MG TAB PO SCH (21:33)
[2018-05-14] MEDS: Lactated Ringers 1000 ML Bag* 1,000 ML IV SCH (02:25)
[2018-05-14] MEDS: Acetaminophen TAB* 325 MG PO SCH ×2 (03:35→10:34)
[2018-05-14] MEDS: oxyCODONE TAB* 5 MG TAB PO PRN (03:35)
[2018-05-14] MEDS: ceFAZolin 1 GM ADVAN(*) 1 GM in NS 0.9% 50 ML* 50 ML IVPB SCH ×2 (03:50→11:50)
[2018-05-14 06:16] LABS: Hematocrit 35 % (42-52); Hemoglobin 11.9 g/dl (14.0-18.0); Mean Platelet Volume 9.5 fL (7.4-10.4); Platelet Count 175 10^3/ul (150-450)
[2018-05-14 06:28] LABS: BUN/Creatinine Ratio 17.4 (8-20); Calcium 9.1 mg/dL (8.6-10.3); EGFR African American 136.8 (>60)
[2018-05-14] MEDS: Insulin LISPRO* 1 UNITS UNIT SUBCUT SCH ×2 (08:21→12:09)
[2018-05-14] MEDS: Pantoprazole TAB * 40 MG TAB PO SCH (08:21)
[2018-05-14] MEDS: oxyCODONE/Acetamin 5/325 MG* TAB PO PRN ×2 (08:21→13:57)
[2018-05-14] MEDS: Docusate CAP* 100 MG PO SCH (08:21)
[2018-05-14] MEDS: Dofetilide CAP* 500 MCG PO SCH (08:21)
[2018-05-14] MEDS ORDERED: Diltiazem CD CAP* 120 MG PO SCH (09:00)
[2018-05-14] MEDS ORDERED: Enoxaparin(*) 40 MG/0.4 ML SYR SUBCUT SCH (12:00)
[2018-05-14 13:07] VITALS: BP 128/75
--- NOTE | 2018-05-14 14:24 | PN ---
Progress Note - Progress Note Date of Service: 05/14/18 SOAP: Subjective: [] Patient was seen and examined at bedside. He feels well without CP, SOB, dizziness or nausea. He felt lightheaded this morning which has resolved. He desires DC to home Objective: []General: Well appearing, NAD RUE: Dressing intact, sling in place, drain pulled with tip intact without complication. Able to flex and extend digits and wrist, Sensation intact to light touch throughout extremity. Capillary refill less than two seconds distally, radial pulse 2+ Assessment: [] POD 1 SP right shoulder reverse 05/13 Dr Lynch Plan: [] NWB PROM with PT- FF and ABD to 90 degrees, ER to 25 degrees active elbow, hand, wrist ROM elbow to be visible to pt at all time. no posterior extension with IR Resume home dose of coumadin, bridge with 40 mg sq qd lovenox until INR 2-3 DC to home, discussed DM2 mgmt with medicine, recommend continue home dose metformin and f/u PCP Vital Signs Temp 97.7 F 05/14/18 11:49 Pulse 70 05/14/18 11:49 Resp 16 05/14/18 13:57 BP 128/75 05/14/18 11:49 Pulse Ox 96 05/14/18 11:49 Intake & Output 05/13/18 05/14/18 05/14/18 18:59 06:59 18:59 Intake Total 1960 2020 1280 Output Total 375 1575 175 Balance 6240 923 6206 Weight 236 lb Intake: IV Fluids 1600 990 585 LR 1600 990 585 IVPB 55 LR 55 Oral 360 1030 640 Output: Hemovac Amount #1 250 Urine 375 1325 175 Other: Estimated Blood Loss MINIMAL Comment Laboratory Last Values Hgb 11.9 g/dl (14.0-18.0) L 05/14/18 05:42 Hct 35 % (42-52) L 05/14/18 05:42 Plt Count 175 10^3/ul (150-450) 05/14/18 05:42 MPV 9.5 fL (7.4-10.4) 05/14/18 05:42 INR (Anticoag Therapy) 1.07 (0.77-1.02) H 05/13/18 09:49 Sodium 133 mmol/L (135-145) L 05/14/18 05:42 Potassium 4.0 mmol/L (3.5-5.0) 05/14/18 05:42 Chloride 101 mmol/L (101-111) 05/14/18 05:42 Carbon Dioxide 24 mmol/L (22-32) 05/14/18 05:42 Anion Gap 8 mmol/L (2-11) 05/14/18 05:42 BUN 12 mg/dL (6-24) 05/14/18 05:42 Creatinine 0.69 mg/dL (0.67-1.17) 05/14/18 05:42 Est GFR ( Amer) 136.8 (>60) 05/14/18 05:42 Est GFR (Non-Af Amer) 113.0 (>60) 05/14/18 05:42 BUN/Creatinine Ratio 17.4 (8-20) 05/14/18 05:42 Glucose 206 mg/dL (70-100) H 05/14/18 05:42 POC Glucose (mg/dL) 265 mg/dL (70-100) H 05/13/18 21:25 Calcium 9.1 mg/dL (8.6-10.3) 05/14/18 05:42
--- NOTE | 2018-05-15 04:07 | DS ---
DISCHARGE SUMMARY: DATE OF ADMISSION: 05/13/18 DATE OF DISCHARGE: 05/14/18 PROVIDER: Dr. Dario Lynch.*(DICTATED BY DANIEL ROBERSON) PRE-OP DIAGNOSIS: Right shoulder rotator cuff arthropathy. OPERATIVE PROCEDURE: Right shoulder reverse shoulder arthroplasty and open biceps tenodesis. HISTORY: Danie Huntley is a 73-year-old male with persistent right shoulder pain and deformity. He has known rotator cuff arthropathy. After extensive discussion of risks and benefits, he has elected to proceed with surgical treatment namely a right shoulder reverse shoulder arthroplasty and open biceps tenodesis. HOSPITAL COURSE: The patient was admitted to [facility] on . He underwent a right shoulder reverse arthroplasty and open biceps tenodesis without complication. On 05/14/18, he was well appearing, dressing was intact. Sling was in place. Sensation and pulse were intact without complication. Able to flex and extend the digits. Sensation intact to light touch throughout. Capillary refill is less than 2 seconds distally. Vital Signs: Temperature 97.7, pulse 70, respiratory rate 16, blood pressure 120/75, pulse ox 96. Hemoglobin 11.9, hematocrit 35, INR 1.07, glucose 206. The patient was deemed medically and orthopedically stable for discharge home. DISCHARGE MEDICATIONS: 1. Pantoprazole 40 mg p.o. b.i.d. 2. Benadryl 25 mg p.o. daily. 3. Diltiazem 120 mg p.o. q.a.m. 4. Lunesta 3 mg p.o. at bedtime p.r.n. 5. Tikosyn 500 mcg p.o. b.i.d. 6. Metformin 1000 mg p.o. b.i.d. 7. Warfarin 7.5 mg per injection and warfarin 5 mg p.o. q.p.m. 8. Pramipexole 2 mg p.o. b.i.d. 9. Ipratropium 2 puffs inhaled both nares q.6 hours p.r.n. 10. Multivitamin 1 p.o. q.a.m. 11. Potassium 20 mEq p.o. q.a.m. 12. Acetaminophen 975 mg p.o. q.8 hours. 13. colace 100 mg p.o. b.i.d.prn 14. Percocet 5/325 mg 1 to 2 tablets every 4 to 6 hours as needed, max daily dose of 8. 15. Lovenox 40 mg subcu q.24 hours until INR reaches a therapeutic dose between 2 and 3. DISCHARGE PLAN: The patient will be nonweightbearing in the operative upper extremity. No active range of motion of the shoulder. Continue elbow, wrist, and hand ROM as shown by PT. Wound care: Okay to shower after the third postoperative day. Pain control: Percocet 5/325 one to two tabs every 4 to 6 hours as needed for pain, max daily dose of 8. You may start your home dose of Coumadin today, 05/14/18. You will need to inject 40 mg of Lovenox daily until your INRs reach a therapeutic level of 2 to 3. Please follow up with your PCP for INR management as well as diabetes management. You are going to be placed back on your home medications. Follow up with Dr. Lynch in 14 days. DISPOSITION: Discharged to home. DANIEL ROBERSON [id number]/[facility] #: [id number] [facility]LE[facility]
[2018-05-16] MEDS ORDERED: Scopolamine PATCH Remove* 1 NOTE MISC PATCH OFF ONE (05:36)
== END 2018-05-14 15:20 | disposition home or self-care (01) | DRG 483 ==
LOC: AA 09:13 → SSU 16:08
PROVIDERS: ADMIT Orthopaedic Surgery; ATTEND Orthopaedic Surgery
PROC: 0RRJ00Z Replacement of Right Shoulder Joint with Reverse Ball and Socket Synthetic Substitute, Open Approach (ICD-10-PCS; principal; 2018-05-13 11:00)
DX: M19.011 Primary osteoarthritis, right shoulder (principal); G47.33 Obstructive sleep apnea (adult) (pediatric); I10 Essential (primary) hypertension; M19.90 Unspecified osteoarthritis, unspecified site; E11.9 Type 2 diabetes mellitus without complications; K21.9 Gastro-esophageal reflux disease without esophagitis; Z96.652 Presence of left artificial knee joint; I48.2 Chronic atrial fibrillation; G25.81 Restless legs syndrome; N40.0 Benign prostatic hyperplasia without lower urinary tract symptoms; G25.0 Essential tremor; I48.0 Paroxysmal atrial fibrillation; M48.02 Spinal stenosis, cervical region; M53.82 Other specified dorsopathies, cervical region; M75.121 Complete rotator cuff tear or rupture of right shoulder, not specified as traumatic; M45.9 Ankylosing spondylitis of unspecified sites in spine; F41.9 Anxiety disorder, unspecified; Z82.5 Family history of asthma and other chronic lower respiratory diseases; Z88.5 Allergy status to narcotic agent; Z83.3 Family history of diabetes mellitus; I08.1 Rheumatic disorders of both mitral and tricuspid valves; E66.9 Obesity, unspecified; Z68.38 Body mass index [BMI] 38.0-38.9, adult; Z79.84 Long term (current) use of oral hypoglycemic drugs; Z79.01 Long term (current) use of anticoagulants
CPT/HCPCS: 36415; 80048; 85014; 85018; 85049; 85610; 88304; 88311; A9270-GY; C1713; C1776; G8978-GP-CI; G8979-GP-CI; G8980-GP-CI; G8987-GO-CJ; G8988-GO-CJ; G8989-GO-CJ; J0330; J0360; J0690; J0780; J1650; J1885; J2250; J2704; J2710; J2795; J3010; J3490; J8540

== ENCOUNTER 2021-08-08 23:49 | Inpatient (IN) ==
[2021-08-09] MEDS ORDERED: Lactated Ringers 1000 ml BAG IV.FLUID IV ONE (00:09)
[2021-08-09 00:56] LABS: ABS Lymphocytes 0.6 10^3/ul (1.0-4.8); ABS Monocytes 0.7 10^3/ul (0-0.8); ABS Neutrophils 3.4 10^3/ul (1.5-7.7); Eosinophil % 0.1 %; Hematocrit 37 % (42-52); Hemoglobin 11.9 g/dL (14.0-18.0); Lymphocyte % 13.7 %; Mean Corpuscular HGB Conc 32 g/dL (31-36); Mean Corpuscular Hemoglobin 23 pg (27-31); Mean Corpuscular Volume 71 fL (80-94); Mean Platelet Volume 7.7 fL (7.4-10.4); Nucleated Red Blood Cells % 0.1; Platelet Count 299 10^3/uL (150-450); Red Blood Count 5.16 10^6 /uL (4.18-5.48); Red Cell Distribution Width 19 % (10-15); White Blood Count 4.7 10^3/uL (3.5-10.8)
[2021-08-09 01:01] LABS: Activated Partial Thrombo Time 44.7 seconds (26.0-38.0); INR 2.04 (0.86-1.15)
[2021-08-09 01:32] LABS: Albumin 3.8 g/dL (3.2-5.2); Albumin/Globulin Ratio 1.1 (1-3); C Reactive Protein 102.49 mg/L (<8.01); Calcium 9.1 mg/dL (8.6-10.3); Globulin 3.4 g/dL (2-4); Potassium 4.4 mmol/L (3.5-5.0); Total Bilirubin 1.5 mg/dL (0.2-1.0); Total Protein 7.2 g/dL (6.4-8.9); eGFR CKD-EPI 89.9 (>60)
[2021-08-09 01:44] LABS: RBC Morphology Normal (Normal)
[2021-08-09 01:51] LABS: Urine Appearance Cloudy; Urine Bilirubin Negative (Negative); Urine Blood 1+ (Negative); Urine Color Yellow; Urine Glucose 3+(>=500 mg/dL) (Negative); Urine Ketones 2+ (Negative); Urine Nitrite Negative (Negative); Urine Protein 1+(30 mg/dL) (Negative); Urine Specific Gravity 1.029 (1.002-1.030); Urine Urobilinogen Negative (Negative)
[2021-08-09 01:59] LABS: Urine Bacteria Absent (Absent); Urine Red Blood Cell 2+(6-10/hpf) (Absent); Urine Squamous Epithelial Cell Present (Absent); Urine White Blood Cell Trace(0-5/hpf) (Absent)
[2021-08-09 02:11] LABS: High Sensitivity Troponin 1 Hr 8 pg/mL (<20)
[2021-08-09] MEDS ORDERED: Dextrose 50% Syringe 50 ml 25 GM/50 ML SYRINGE IV PUSH PRN (05:27)
[2021-08-09] MEDS ORDERED: Warfarin per PHARMACY **NOTE FOLLOW UP SCH (06:00)
[2021-08-09 07:41] LABS: INR 2.04 (0.86-1.15)
[2021-08-09 08:27] LABS: Albumin 3.6 g/dL (3.2-5.2); Albumin/Globulin Ratio 1.1 (1-3); Calcium 8.9 mg/dL (8.6-10.3); Direct Bilirubin 0.4 mg/dL (0.03-0.18); Globulin 3.4 g/dL (2-4); Magnesium 1.8 mg/dL (1.9-2.7); Potassium 4.3 mmol/L (3.5-5.0); Total Bilirubin 1.5 mg/dL (0.2-1.0); eGFR CKD-EPI 93.6 (>60)
[2021-08-09 08:35] LABS: Hematocrit 37 % (42-52); Mean Corpuscular HGB Conc 32 g/dL (31-36); Mean Corpuscular Hemoglobin 23 pg (27-31); Mean Corpuscular Volume 72 fL (80-94); Platelet Count 257 10^3/uL (150-450); Red Blood Count 5.18 10^6 /uL (4.18-5.48); Red Cell Distribution Width 19 % (10-15); White Blood Count 3.7 10^3/uL (3.5-10.8)
[2021-08-09 08:41] LABS: ABS Lymphocytes 0.6 10^3/ul (1.0-4.8); ABS Monocytes 0.4 10^3/ul (0-0.8); ABS Neutrophils 2.7 10^3/ul (1.5-7.7); Eosinophil % 0.1 %; Nucleated Red Blood Cells % 0.1
[2021-08-09] MEDS ORDERED: Magnesium Sulfate IV 1GM/100ML 1 GM/100 ML BAG IV ONE (08:47)
[2021-08-09] MEDS ORDERED: cefTRIAXone 2 gm/50 mL D5W 2 GM/50 ML BAG IV SCH (09:30)
[2021-08-09] MEDS ORDERED: Lactated Ringers 1000 ml BAG 1,000 ML IV SCH (10:00)
[2021-08-09] MEDS ORDERED: Lactated Ringers 1000 ml BAG 1,000 ML IV ONE (12:08)
[2021-08-09 12:28] LABS: Chlamydia trachomatis NAA Negative (Negative); Neisseria gonorrhoeae (GC) NAA Negative (Negative)
[2021-08-09] MEDS: Nystatin TOP POWDER 15 GM BTL TOPICAL SCH ×2 (12:48→20:58)
[2021-08-09] MEDS ORDERED: Diltiazem IV push/loading dose 5 MG/ML 5 ML vial (25 mg) IV SLOW PU ONE ×2 (13:53→23:22)
[2021-08-09] MEDS ORDERED: DOXYcycline 100 MG in NS 0.9% 250 ml 250 ML IVPB SCH (21:00)
[2021-08-10] MEDS ORDERED: Diltiazem IV push/loading dose 5 MG/ML 5 ML vial (25 mg) IV SLOW PU ONE (02:59)
[2021-08-10 05:00] LABS: Hematocrit 34 % (42-52); Hemoglobin 11.2 g/dL (14.0-18.0); Mean Platelet Volume 8.1 fL (7.4-10.4); Platelet Count 234 10^3/uL (150-450)
[2021-08-10 05:10] LABS: INR 1.6 (0.86-1.15)
[2021-08-10] MEDS: Nystatin TOP POWDER 15 GM BTL TOPICAL SCH ×2 (08:50→21:12)
[2021-08-10] MEDS ORDERED: Diltiazem IV BAG D5W Premix 125 MG/125 ML BAG IV SCH (11:00)
[2021-08-10] MEDS ORDERED: Diltiazem Infusion @ 5 MG/HR - (MEDTELE ONLY, no titration) IV SCH (11:30)
[2021-08-10] MEDS ORDERED: cefTRIAXone 1 gm/50 mL D5W 1 GM/50 ML BAG IV SCH (13:30)
[2021-08-10 14:34] LABS: Calcium 8.7 mg/dL (8.6-10.3); Potassium 3.8 mmol/L (3.5-5.0); eGFR CKD-EPI 94.7 (>60)
[2021-08-10] MEDS: Warfarin DAILY REMINDER **NOTE FOLLOW UP SCH (17:45)
[2021-08-11 00:18] LABS: Anaplasma phagocytophilum Positive (Negative); B. miyamotoi PCR, B Negative (Negative); Babesia divergens/MO-1 Negative (Negative); Babesia ducani Negative (Negative); Ehrlichia chaffeensis Negative (Negative); Ehrlichia ewingii/canis Negative (Negative); Ehrlichia muris eauclairensis Negative (Negative)
[2021-08-11] MEDS: DOXYcycline 100 MG in NS 0.9% 250 ml 250 ML IVPB SCH ×2 (02:43→15:20)
[2021-08-11 06:42] LABS: INR 1.73 (0.86-1.15)
[2021-08-11 06:48] LABS: Hematocrit 34 % (42-52); Mean Corpuscular HGB Conc 32 g/dL (31-36); Mean Corpuscular Hemoglobin 23 pg (27-31); Mean Corpuscular Volume 72 fL (80-94); Mean Platelet Volume 8.2 fL (7.4-10.4); Platelet Count 270 10^3/uL (150-450); Red Blood Count 4.77 10^6 /uL (4.18-5.48); Red Cell Distribution Width 20 % (10-15); White Blood Count 3.8 10^3/uL (3.5-10.8)
[2021-08-11 06:52] LABS: Calcium 8.4 mg/dL (8.6-10.3); Magnesium 1.9 mg/dL (1.9-2.7); Potassium 4.1 mmol/L (3.5-5.0); eGFR CKD-EPI 97.1 (>60)
[2021-08-11] MEDS: Nystatin TOP POWDER 15 GM BTL TOPICAL SCH ×2 (08:05→20:23)
[2021-08-11] MEDS: Warfarin DAILY REMINDER **NOTE FOLLOW UP SCH (17:42)
[2021-08-11 17:54] LABS: Direct Bilirubin 0.2 mg/dL (0.03-0.18); Indirect Bilirubin 0.4 mg/dL (0.3-1.0); Total Bilirubin 0.6 mg/dL (0.2-1.0)
[2021-08-12] MEDS: DOXYcycline 100 MG in NS 0.9% 250 ml 250 ML IVPB SCH ×2 (02:00→14:19)
[2021-08-12 05:32] LABS: Hematocrit 35 % (42-52); Hemoglobin 11.3 g/dL (14.0-18.0); Mean Corpuscular HGB Conc 33 g/dL (31-36); Mean Corpuscular Hemoglobin 23 pg (27-31); Mean Corpuscular Volume 72 fL (80-94); Mean Platelet Volume 7.7 fL (7.4-10.4); Platelet Count 287 10^3/uL (150-450); Red Blood Count 4.87 10^6 /uL (4.18-5.48); Red Cell Distribution Width 20 % (10-15); White Blood Count 3.9 10^3/uL (3.5-10.8)
[2021-08-12 05:37] LABS: INR 2.23 (0.86-1.15)
[2021-08-12 06:53] LABS: Calcium 8.6 mg/dL (8.6-10.3); Magnesium 1.8 mg/dL (1.9-2.7); Potassium 4.3 mmol/L (3.5-5.0)
[2021-08-12 06:58] LABS: eGFR CKD-EPI 101.3 (>60)
[2021-08-12] MEDS: Nystatin TOP POWDER 15 GM BTL TOPICAL SCH ×2 (07:19→20:34)
[2021-08-12] MEDS ORDERED: Magnesium Sulfate 2 gm BAG 2 GM/50 ML BAG IVPB ONE (08:05)
[2021-08-12] MEDS: Warfarin DAILY REMINDER **NOTE FOLLOW UP SCH (16:36)
[2021-08-13] MEDS: DOXYcycline 100 MG in NS 0.9% 250 ml 250 ML IVPB SCH ×2 (01:37→13:18)
[2021-08-13 05:59] LABS: Hematocrit 36 % (42-52); Hemoglobin 11.6 g/dL (14.0-18.0); Mean Platelet Volume 8.2 fL (7.4-10.4); Platelet Count 288 10^3/uL (150-450)
[2021-08-13 06:04] LABS: INR 2.38 (0.86-1.15)
[2021-08-13 06:22] LABS: Calcium 8.6 mg/dL (8.6-10.3); Magnesium 1.7 mg/dL (1.9-2.7); Potassium 4.1 mmol/L (3.5-5.0); eGFR CKD-EPI 99.8 (>60)
[2021-08-13] MEDS: Nystatin TOP POWDER 15 GM BTL TOPICAL SCH (08:04)
[2021-08-13] MEDS ORDERED: Magnesium Sulfate 2 gm BAG 2 GM/50 ML BAG IVPB ONE (08:14)
[2021-08-13 11:16] VITALS: BP 113/78
== END 2021-08-13 16:32 | disposition home or self-care (01) | DRG 868 ==
LOC: ED 23:49 → SUATTDRO 08-09 04:58 → EDHOLD 08-09 04:58 → SSU 08-09 07:41 → MEDTELE 08-09 21:13
PROVIDERS: ADMIT Hospitalist; ATTEND Internal Medicine

== ENCOUNTER 2023-08-04 11:48 | Observation (INO) ==
[2023-08-04 15:57] LABS: ABS Eosinophils 0.1 10^3/uL (0.0-0.5); ABS Lymphocytes 1.3 10^3/uL (1.0-4.8); ABS Monocytes 0.9 10^3/uL (0.0-1.1); ABS Neutrophils 6.7 10^3/uL (1.5-7.6); ABS Nucleated RBC 0.02 10^3/ul; Eosinophil % 1.2 %; Hematocrit 48.7 % (38-53); Hemoglobin 17.1 g/dL (13.2-16.3); Mean Corpuscular Hemoglobin 31.1 pg (27-33); Mean Corpuscular Volume 88.8 fL (80-97); Mean Platelet Volume 8.8 fL (7.5-11.2); Nucleated Red Blood Cells % 0.2 %/100WBC (0.0-0.8); Platelet Count 195 10^3/uL (150-450); Red Blood Count 5.49 10^6/uL (4.06-5.63); Red Cell Distribution Width 14.1 % (12-17)
[2023-08-04 16:19] LABS: Urine Appearance Clear; Urine Bilirubin Negative (Negative); Urine Blood Negative (Negative); Urine Color Light-Yellow; Urine Glucose 4+ (>=1000 mg/dL) (Negative); Urine Ketones Negative (Negative); Urine Nitrite Negative (Negative); Urine Protein Negative (Negative); Urine Urobilinogen Negative (Negative)
[2023-08-04 16:25] LABS: Albumin 4.6 g/dL (3.2-5.2); Albumin/Globulin Ratio 1.6 (1-3); Calcium 9.7 mg/dL (8.6-10.3); Creatinine, Serum 0.73 mg/dL (0.67-1.17); Globulin 2.8 g/dL (2-4); Magnesium 2.2 mg/dL (1.9-2.7); Potassium 4.2 mmol/L (3.5-5.0); Total Bilirubin 1.1 mg/dL (0.2-1.0); Total Protein 7.4 g/dL (6.4-8.9); eGFR CKD-EPI 94.3 (>60)
[2023-08-04 16:36] LABS: TSH Ultra Thyroid Stim Horm 1.21 mcIU/mL (0.34-5.60)
[2023-08-04] MEDS: Iodixanol (CONTRAST) 320 MG/ML 100 ML SDV IV ONE (17:44)
[2023-08-04 17:56] LABS: High Sensitivity Troponin 1 Hr 4 pg/mL (<20)
[2023-08-04 20:05] LABS: HDL Cholesterol 51.4 mg/dL
[2023-08-05 02:12] LABS: INR 3.1 (0.83-1.13)
[2023-08-05 05:46] LABS: ABS Eosinophils 0.1 10^3/uL (0.0-0.5); ABS Lymphocytes 1.3 10^3/uL (1.0-4.8); ABS Monocytes 0.7 10^3/uL (0.0-1.1); ABS Neutrophils 5.4 10^3/uL (1.5-7.6); ABS Nucleated RBC 0.02 10^3/ul; Eosinophil % 1.8 %; Hematocrit 45.7 % (38-53); Hemoglobin 16.2 g/dL (13.2-16.3); Lymphocyte % 16.9 %; Mean Corpuscular Hemoglobin 31.3 pg (27-33); Mean Corpuscular Hgb Conc 35.4 g/dL (31-36); Mean Corpuscular Volume 88.4 fL (80-97); Mean Platelet Volume 8.9 fL (7.5-11.2); Nucleated Red Blood Cells % 0.2 %/100WBC (0.0-0.8); Platelet Count 168 10^3/uL (150-450); Red Blood Count 5.17 10^6/uL (4.06-5.63); White Blood Count 7.6 10^3/uL (3.6-10.2)
[2023-08-05 06:47] LABS: Anion Gap 8 mmol/L (2-16); Blood Urea Nitrogen 19 mg/dL (6-24); CO2 Carbon Dioxide 22 mmol/L (22-32); Chloride 107 mmol/L (101-111); Glucose 89 mg/dL (70-100); Sodium 137 mmol/L (135-145)
[2023-08-05 06:48] LABS: Calcium 8.8 mg/dL (8.6-10.3); Creatinine, Serum 0.57 mg/dL (0.67-1.17); eGFR CKD-EPI 101.6 (>60)
[2023-08-05] MEDS: Empagliflozin 25 MG TAB PO SCH (09:01)
[2023-08-05] MEDS ORDERED: Ondansetron 4 mg VIAL 2 MG/ML 2 ml VIAL IV PRN (09:14)
[2023-08-05] MEDS ORDERED: Warfarin per PHARMACY **NOTE FOLLOW UP SCH (10:00)
[2023-08-05] MEDS ORDERED: Dextrose 50% Syringe 50 ml 25 GM/50 ML SYRINGE IV PUSH PRN (10:49)
[2023-08-05] MEDS ORDERED: Sulfur Hexaflouride MICROSPHR 25 MG VIAL ONE (13:35)
[2023-08-05] MEDS ORDERED: Warfarin DAILY REMINDER **NOTE FOLLOW UP SCH (17:00)
[2023-08-05] MEDS: Lactated Ringers 1000 ml BAG 1,000 ML IV ONE (18:18)
[2023-08-05] MEDS: Lactated Ringers 1000 ml BAG 1,000 ML IV SCH (20:12)
[2023-08-06 06:34] LABS: ABS Eosinophils 0.2 10^3/uL (0.0-0.5); ABS Lymphocytes 1.3 10^3/uL (1.0-4.8); ABS Monocytes 0.7 10^3/uL (0.0-1.1); ABS Neutrophils 4.5 10^3/uL (1.5-7.6); ABS Nucleated RBC 0.01 10^3/ul; Eosinophil % 2.8 %; Hematocrit 42.5 % (38-53); Hemoglobin 14.7 g/dL (13.2-16.3); Lymphocyte % 18.9 %; Mean Corpuscular Hemoglobin 30.7 pg (27-33); Mean Corpuscular Hgb Conc 34.7 g/dL (31-36); Mean Corpuscular Volume 88.4 fL (80-97); Mean Platelet Volume 8.9 fL (7.5-11.2); Nucleated Red Blood Cells % 0.1 %/100WBC (0.0-0.8); Platelet Count 166 10^3/uL (150-450); Red Blood Count 4.81 10^6/uL (4.06-5.63); Red Cell Distribution Width 13.8 % (12-17); White Blood Count 6.6 10^3/uL (3.6-10.2)
[2023-08-06 06:44] LABS: INR 3.86 (0.83-1.13)
[2023-08-06 07:02] LABS: Calcium 8.7 mg/dL (8.6-10.3); Creatinine, Serum 0.8 mg/dL (0.67-1.17); Potassium 3.9 mmol/L (3.5-5.0); eGFR CKD-EPI 91.7 (>60)
[2023-08-06] MEDS ORDERED: methylPREDNISolone ACETATE 40 mg/ml 1 ml VIAL **not IV ONE (09:53)
[2023-08-06] MEDS ORDERED: Lidocaine 1% MPF 2 ML VIAL ONE (09:53)
[2023-08-06] MEDS ORDERED: Lidocaine 1% MPF 5 ML VIAL ONE (09:54)
[2023-08-06 13:56] VITALS: BP 114/73
[2023-08-06] MEDS ORDERED: Warfarin - No Order Today **NOTE FOLLOW UP ONE (17:00)
== END 2023-08-06 14:30 | disposition home or self-care (01) ==
LOC: EDHOLD 11:48 → ED 11:48 → SUATTDRO 18:17 → MEDTELE 08-05 07:57
PROVIDERS: ADMIT Internal Medicine; ATTEND Student in an Organized Health Care Education/Training Program